=== PATIENT | female | born 1965 | race Caucasian/White ===

== ENCOUNTER 2022-04-29 08:09 | Outpatient (CLI) | payer MEDICARE, OTHER, SELFPAY ==
--- NOTE | 2022-04-29 10:00 | CRLHL7_ITS ---
For Patients: As a result of the Century Cures Act, medical imaging exams and procedure reports are released immediately into your electronic medical record. You may view this report before your referring provider. If you have questions, please contact your health care provider. Indication: Non-healing bilateral buttock pressure wound Technique: AP pelvis Comparison: MRI 05/26/21 Findings: The femoral head component of the hip replacement hardware is subluxed/displaced. Areas of ill-defined decreased marrow density are present about the acetabular cup. Greater trochanter intact. No acute fracture. Constipation. The sacrum is not well evaluated due to overlying stool. Impression: Abnormal right hip replacement hardware with subluxation/dislocation deformity along with concern for chronic osteomyelitis about the acetabular cup. Dictated by Miguel Daniels MD @ 04/29/2022 10:54:23 AM (Electronically Signed)
== END 2022-04-29 08:10 | disposition home or self-care (01) ==
PROVIDERS: Visit Provider Nurse Practitioner Family
DX: L89.310 Pressure ulcer of right buttock, unstageable (principal); L89.320 Pressure ulcer of left buttock, unstageable; L89.153 Pressure ulcer of sacral region, stage 3; Z99.3 Dependence on wheelchair
CPT/HCPCS: 11042; 11043; 72170; 87070; 99213

== ENCOUNTER 2022-05-04 15:30 | Outpatient (CLI) | payer OTHER, MEDICARE, SELFPAY | END 2022-05-04 15:31 | disposition home or self-care (01) | LOC: WOUND 15:32 | PROVIDERS: Visit Provider Nurse Practitioner Family | DX: L89.320 Pressure ulcer of left buttock, unstageable (principal); L89.312 Pressure ulcer of right buttock, stage 2; L89.154 Pressure ulcer of sacral region, stage 4; Z99.3 Dependence on wheelchair | CPT/HCPCS: 11042 ==

== ENCOUNTER 2022-05-18 14:57 | Outpatient (CLI) | payer MEDICARE, SELFPAY | END 2022-05-18 14:58 | disposition home or self-care (01) | LOC: WOUND 14:58 | PROVIDERS: Visit Provider Nurse Practitioner Family | DX: L89.310 Pressure ulcer of right buttock, unstageable (principal); L89.320 Pressure ulcer of left buttock, unstageable; Z99.3 Dependence on wheelchair | CPT/HCPCS: 11042 ==

== ENCOUNTER 2022-05-25 15:37 | Outpatient (CLI) | payer MEDICARE, SELFPAY ==
[2022-05-25 17:23] LABS: Basophils Percent Auto 0.2 % (0.0-3.0); Eosinophils Percent Auto 0.7 % (0.0-7.0); Hematocrit 37.6 % (33.0-51.0); Immature Granulocytes Pct Auto 1.3 %; Lymphocytes Percent Auto 11.6 % (20-44); Mean Corpuscular HGB Conc 32 gm/dL (32-36); Mean Corpuscular Hemoglobin 33 pg (26-34); Mean Corpuscular Volume 104 fL (80-100); Monocytes Percent Auto 8.9 % (0.0-11.0); Neutrophils Percent Auto 77.3 % (42.0-72.0); Platelet Count* 329 K/uL (140-440); Red Blood Count 3.63 m/uL (4.00-5.20); White Blood Count* 14.89 K/uL (4.50-11.00)
[2022-05-25 17:27] LABS: Slide Review Reflex No
[2022-05-25 17:33] LABS: Chloride* 101 mmol/L (96-114); Potassium* 4.5 mmol/L (3.6-5.1); Sodium* 134 mmol/L (135-149)
[2022-05-25 17:35] LABS: Creatinine* 0.2 mg/dL (0.5-1.5); Estimated Glomerular Filt Rate 139 ml/min
[2022-05-25 17:36] LABS: Blood Urea Nitrogen* 33 mg/dL (7-30); Carbon Dioxide* 33 mmol/L (20-32); Glucose* 95 mg/dL (60-115)
[2022-05-25 17:37] LABS: Calcium* 9.3 mg/dL (8.4-10.6)
== END 2022-05-25 15:38 | disposition home or self-care (01) ==
LOC: WOUND 15:37
PROVIDERS: Visit Provider Nurse Practitioner Family
DX: M86.68 Other chronic osteomyelitis, other site (principal); L89.314 Pressure ulcer of right buttock, stage 4; L89.324 Pressure ulcer of left buttock, stage 4; L24.A2 Irritant contact dermatitis due to fecal, urinary or dual incontinence; G82.50 Quadriplegia, unspecified; Z99.3 Dependence on wheelchair
CPT/HCPCS: 11043; 36415; 80048; 85025; 86140

== ENCOUNTER 2022-06-03 12:40 | Outpatient (CLI) | payer MEDICARE, SELFPAY | END 2022-06-03 12:41 | disposition home or self-care (01) | LOC: WOUND 12:40 | PROVIDERS: Visit Provider Nurse Practitioner Family | DX: M86.68 Other chronic osteomyelitis, other site (principal); L89.314 Pressure ulcer of right buttock, stage 4; L89.324 Pressure ulcer of left buttock, stage 4; L24.A2 Irritant contact dermatitis due to fecal, urinary or dual incontinence; Z99.3 Dependence on wheelchair | CPT/HCPCS: 11043; 99212 ==

== ENCOUNTER 2022-06-08 08:51 | Outpatient (CLI) | payer MEDICARE, SELFPAY ==
--- NOTE | 2022-06-08 09:15 | CRLHL7_ITS ---
For Patients: As a result of the Century Cures Act, medical imaging exams and procedure reports are released immediately into your electronic medical record. You may view this report before your referring provider. If you have questions, please contact your health care provider. INDICATION: Tunneling nonhealing pressure wound. Assess for osteomyelitis. COMPARISON: Plain film 29 April 2022 and MRI 26 May 2021. TECHNIQUE: Axial, coronal and sagittal T1 and STIR pre contrast sequences. 15 mL Dotarem gadolinium contrast with T1 fat-sat postcontrast sequences in all 3 planes. FINDINGS: Right hip prosthesis. Fecal impaction. Thickened rectal wall circumferentially. Cachexia appearance of soft tissues. Decubitus ulcers to ischial tuberosities bilaterally slightly more pronounced on the left with surrounding enhancing granulation tissue. Indistinct cortical margins and shallow enhancing low T1 high STIR marrow edema in the ischial tuberosities bilaterally. Abnormal appearance appears confined to the cortex and at most 2-3 mm of the underlying marrow. Thick-walled incompletely visualized urinary bladder. Moderate osteoarthritis left hip. Small effusion. IMPRESSION: 1. Decubitus ulcers to the ischial tuberosities bilaterally which both show mild shallow osteomyelitis. 2. Fecal impaction. Dictated by Abelardo Hollis MD @ 06/09/2022 9:05:17 AM (Electronically Signed)
== END 2022-06-08 08:52 | disposition home or self-care (01) ==
PROVIDERS: PCP Family Medicine; Visit Provider Nurse Practitioner Family
DX: L89.314 Pressure ulcer of right buttock, stage 4 (principal); L89.324 Pressure ulcer of left buttock, stage 4; M86.68 Other chronic osteomyelitis, other site; G82.50 Quadriplegia, unspecified
CPT/HCPCS: 72197; A9575

== ENCOUNTER 2022-07-12 12:48 | Outpatient (CLI) | payer MEDICARE, SELFPAY | END 2022-07-12 12:49 | disposition home or self-care (01) | LOC: WOUND 12:48 | PROVIDERS: PCP Family Medicine; Visit Provider Nurse Practitioner Family | DX: M86.68 Other chronic osteomyelitis, other site (principal); L89.314 Pressure ulcer of right buttock, stage 4; L89.324 Pressure ulcer of left buttock, stage 4; G82.50 Quadriplegia, unspecified; Z99.3 Dependence on wheelchair | CPT/HCPCS: 11042; 11044; 87070; 88304; 97605 ==

== ENCOUNTER 2022-07-14 10:35 | Outpatient (CLI) | payer MEDICARE, SELFPAY | END 2022-07-14 10:36 | disposition home or self-care (01) | LOC: WOUND 10:35 | PROVIDERS: PCP Family Medicine; Visit Provider Surgery | DX: M86.68 Other chronic osteomyelitis, other site (principal); L89.314 Pressure ulcer of right buttock, stage 4; L89.324 Pressure ulcer of left buttock, stage 4; L24.A2 Irritant contact dermatitis due to fecal, urinary or dual incontinence; G82.50 Quadriplegia, unspecified; Z99.3 Dependence on wheelchair | CPT/HCPCS: 11044; 97597; 99212 ==

== ENCOUNTER 2022-07-19 12:42 | Outpatient (CLI) | payer MEDICARE, SELFPAY | END 2022-07-19 12:43 | disposition home or self-care (01) | LOC: WOUND 12:42 | PROVIDERS: PCP Family Medicine; Visit Provider Nurse Practitioner Family | DX: M86.68 Other chronic osteomyelitis, other site (principal); L89.314 Pressure ulcer of right buttock, stage 4; L89.324 Pressure ulcer of left buttock, stage 4; G82.50 Quadriplegia, unspecified; Z99.3 Dependence on wheelchair | CPT/HCPCS: 11042; 11044; 87070; 97605 ==

== ENCOUNTER 2022-07-21 13:54 | Outpatient (CLI) | payer MEDICARE, SELFPAY | END 2022-07-21 13:55 | disposition home or self-care (01) | LOC: WOUND 13:54 | PROVIDERS: PCP Family Medicine; Visit Provider Nurse Practitioner Family | DX: M86.68 Other chronic osteomyelitis, other site (principal); L89.324 Pressure ulcer of left buttock, stage 4; G82.50 Quadriplegia, unspecified; Z99.3 Dependence on wheelchair | CPT/HCPCS: 97605 ==

== ENCOUNTER 2022-07-26 12:52 | Outpatient (CLI) | payer MEDICARE, SELFPAY | END 2022-07-26 12:53 | disposition home or self-care (01) | LOC: WOUND 12:52 | PROVIDERS: PCP Family Medicine; Visit Provider Family Medicine | DX: M86.68 Other chronic osteomyelitis, other site (principal); L89.314 Pressure ulcer of right buttock, stage 4; L89.324 Pressure ulcer of left buttock, stage 4; G82.50 Quadriplegia, unspecified; Z99.3 Dependence on wheelchair | CPT/HCPCS: 11043; 97605 ==

== ENCOUNTER 2022-08-02 12:52 | Outpatient (CLI) | payer MEDICARE, SELFPAY | END 2022-08-02 12:53 | disposition home or self-care (01) | LOC: WOUND 12:52 | PROVIDERS: PCP Family Medicine; Visit Provider Family Medicine | DX: L89.314 Pressure ulcer of right buttock, stage 4 (principal); L89.324 Pressure ulcer of left buttock, stage 4; M86.68 Other chronic osteomyelitis, other site; L24.A2 Irritant contact dermatitis due to fecal, urinary or dual incontinence; G82.50 Quadriplegia, unspecified | CPT/HCPCS: 11042; 97605 ==

== ENCOUNTER 2022-08-16 12:47 | Outpatient (CLI) | payer MEDICARE, SELFPAY | END 2022-08-16 12:48 | disposition home or self-care (01) | LOC: WOUND 12:47 | PROVIDERS: PCP Family Medicine; Visit Provider Nurse Practitioner Family | DX: M86.68 Other chronic osteomyelitis, other site (principal); L89.314 Pressure ulcer of right buttock, stage 4; L89.324 Pressure ulcer of left buttock, stage 4; G82.50 Quadriplegia, unspecified; Z99.3 Dependence on wheelchair | CPT/HCPCS: 11042; 97605 ==

== ENCOUNTER 2022-08-23 13:05 | Outpatient (CLI) | payer MEDICARE, SELFPAY | END 2022-08-23 13:06 | disposition home or self-care (01) | LOC: WOUND 13:05 | PROVIDERS: PCP Family Medicine; Visit Provider Nurse Practitioner Family | DX: M86.68 Other chronic osteomyelitis, other site (principal); L89.314 Pressure ulcer of right buttock, stage 4; L89.324 Pressure ulcer of left buttock, stage 4; L24.A2 Irritant contact dermatitis due to fecal, urinary or dual incontinence; Z99.3 Dependence on wheelchair | CPT/HCPCS: 11042; 97605 ==

== ENCOUNTER 2022-08-30 12:56 | Outpatient (CLI) | payer MEDICARE, SELFPAY | END 2022-08-30 12:57 | disposition home or self-care (01) | LOC: WOUND 12:56 | PROVIDERS: PCP Family Medicine; Visit Provider Nurse Practitioner Family | DX: M86.68 Other chronic osteomyelitis, other site (principal); L89.314 Pressure ulcer of right buttock, stage 4; L89.324 Pressure ulcer of left buttock, stage 4; G82.50 Quadriplegia, unspecified; Z99.3 Dependence on wheelchair | CPT/HCPCS: 11042; 97605 ==

== ENCOUNTER 2022-09-06 12:59 | Outpatient (CLI) | payer MEDICARE, SELFPAY | END 2022-09-06 13:00 | disposition home or self-care (01) | LOC: WOUND 12:59 | PROVIDERS: PCP Family Medicine; Visit Provider Nurse Practitioner Family | DX: M86.68 Other chronic osteomyelitis, other site (principal); L89.314 Pressure ulcer of right buttock, stage 4; L89.324 Pressure ulcer of left buttock, stage 4; G82.50 Quadriplegia, unspecified; Z99.3 Dependence on wheelchair | CPT/HCPCS: 11042; 97606 ==

== ENCOUNTER 2022-09-13 13:01 | Outpatient (CLI) | payer MEDICARE, SELFPAY | END 2022-09-13 13:02 | disposition home or self-care (01) | LOC: WOUND 13:01 | PROVIDERS: PCP Family Medicine; Visit Provider Nurse Practitioner Family | DX: M86.68 Other chronic osteomyelitis, other site (principal); L89.314 Pressure ulcer of right buttock, stage 4; L89.324 Pressure ulcer of left buttock, stage 4; G82.50 Quadriplegia, unspecified; Z99.3 Dependence on wheelchair | CPT/HCPCS: 11042; 97605 ==

== ENCOUNTER 2022-09-20 13:04 | Outpatient (CLI) | payer MEDICARE, SELFPAY | END 2022-09-20 13:05 | disposition home or self-care (01) | LOC: WOUND 13:04 | PROVIDERS: PCP Family Medicine; Visit Provider Nurse Practitioner Family | DX: M86.68 Other chronic osteomyelitis, other site (principal); L89.314 Pressure ulcer of right buttock, stage 4; L89.324 Pressure ulcer of left buttock, stage 4; G82.50 Quadriplegia, unspecified; Z99.3 Dependence on wheelchair | CPT/HCPCS: 11042; 97605 ==

== ENCOUNTER 2022-09-27 13:09 | Outpatient (CLI) | payer MEDICARE, SELFPAY | END 2022-09-27 13:10 | disposition home or self-care (01) | LOC: WOUND 13:09 | PROVIDERS: PCP Family Medicine; Visit Provider Nurse Practitioner Family | DX: M86.68 Other chronic osteomyelitis, other site (principal); L89.314 Pressure ulcer of right buttock, stage 4; L89.324 Pressure ulcer of left buttock, stage 4; G82.50 Quadriplegia, unspecified; Z99.3 Dependence on wheelchair | CPT/HCPCS: 11042; 97605 ==

== ENCOUNTER 2022-10-04 13:42 | Outpatient (CLI) | payer MEDICARE, SELFPAY | END 2022-10-04 13:43 | disposition home or self-care (01) | LOC: WOUND 13:42 | PROVIDERS: PCP Family Medicine; Visit Provider Nurse Practitioner Family | DX: M86.68 Other chronic osteomyelitis, other site (principal); L89.314 Pressure ulcer of right buttock, stage 4; L89.324 Pressure ulcer of left buttock, stage 4; G82.50 Quadriplegia, unspecified; Z99.3 Dependence on wheelchair | CPT/HCPCS: 11042; 97605 ==

== ENCOUNTER 2022-10-18 13:11 | Outpatient (CLI) | payer MEDICARE, SELFPAY | END 2022-10-18 13:12 | disposition home or self-care (01) | LOC: WOUND 13:11 | PROVIDERS: PCP Family Medicine; Visit Provider Nurse Practitioner Family | DX: M86.68 Other chronic osteomyelitis, other site (principal); L89.314 Pressure ulcer of right buttock, stage 4; L89.324 Pressure ulcer of left buttock, stage 4; G82.50 Quadriplegia, unspecified; Z99.3 Dependence on wheelchair | CPT/HCPCS: 11042; 99212 ==

== ENCOUNTER 2022-11-01 12:55 | Outpatient (CLI) | payer MEDICARE, SELFPAY | END 2022-11-01 12:56 | disposition home or self-care (01) | LOC: WOUND 12:55 | PROVIDERS: PCP Family Medicine; Visit Provider Nurse Practitioner Family | DX: M86.68 Other chronic osteomyelitis, other site (principal); L89.314 Pressure ulcer of right buttock, stage 4; L89.324 Pressure ulcer of left buttock, stage 4; G82.50 Quadriplegia, unspecified; Z99.3 Dependence on wheelchair | CPT/HCPCS: 97597; 97605 ==

== ENCOUNTER 2022-11-15 13:09 | Outpatient (CLI) | payer MEDICARE, SELFPAY | END 2022-11-15 13:10 | disposition home or self-care (01) | LOC: WOUND 13:09 | PROVIDERS: PCP Family Medicine; Visit Provider Nurse Practitioner Family | DX: M86.68 Other chronic osteomyelitis, other site (principal); L89.314 Pressure ulcer of right buttock, stage 4; L89.324 Pressure ulcer of left buttock, stage 4; G82.50 Quadriplegia, unspecified; Z99.3 Dependence on wheelchair | CPT/HCPCS: 11042; 97602; 97605 ==

== ENCOUNTER 2022-11-22 12:59 | Outpatient (CLI) | payer MEDICARE, SELFPAY | END 2022-11-22 13:00 | disposition home or self-care (01) | LOC: WOUND 12:59 | PROVIDERS: PCP Family Medicine; Visit Provider Nurse Practitioner Family | DX: M86.68 Other chronic osteomyelitis, other site (principal); L89.314 Pressure ulcer of right buttock, stage 4; L89.324 Pressure ulcer of left buttock, stage 4; G82.50 Quadriplegia, unspecified; Z99.3 Dependence on wheelchair | CPT/HCPCS: 97597; 97605 ==

== ENCOUNTER 2022-11-29 12:59 | Outpatient (CLI) | payer MEDICARE, SELFPAY | END 2022-11-29 13:00 | disposition home or self-care (01) | LOC: WOUND 12:59 | PROVIDERS: PCP Family Medicine; Visit Provider Nurse Practitioner Family | DX: M86.68 Other chronic osteomyelitis, other site (principal); L89.314 Pressure ulcer of right buttock, stage 4; L89.324 Pressure ulcer of left buttock, stage 4; G82.50 Quadriplegia, unspecified; Z99.3 Dependence on wheelchair | CPT/HCPCS: 11042; 97605 ==

== ENCOUNTER 2022-12-06 12:53 | Outpatient (CLI) | payer MEDICARE, SELFPAY | END 2022-12-06 12:54 | disposition home or self-care (01) | LOC: WOUND 12:53 | PROVIDERS: PCP Family Medicine; Visit Provider Nurse Practitioner Family | DX: M86.68 Other chronic osteomyelitis, other site (principal); L89.314 Pressure ulcer of right buttock, stage 4; L89.324 Pressure ulcer of left buttock, stage 4; G82.50 Quadriplegia, unspecified; Z99.3 Dependence on wheelchair | CPT/HCPCS: 11042; 97605 ==

== ENCOUNTER 2022-12-06 17:20 | Outpatient (CLI) | payer MEDICARE, SELFPAY | END 2022-12-06 17:21 | disposition home or self-care (01) | LOC: AMB 12-08 12:15 | PROVIDERS: PCP Family Medicine; Visit Provider Family Medicine | DX: I95.9 Hypotension, unspecified (principal); R06.02 Shortness of breath; H53.8 Other visual disturbances | CPT/HCPCS: A0425; A0427 ==

== ENCOUNTER 2022-12-06 17:48 | Emergency (ER) | payer MEDICARE, SELFPAY ==
[2022-12-06 17:54] VITALS: BP 91/70; PULSE 75; RESP 16; TEMP 36.4; O2SAT 100
[2022-12-06 18:14] VITALS: O2SAT 100
--- NOTE | 2022-12-06 18:15 | ED_ITS ---
HPI - General Adult General Chief complaint: Unspecified Complaint, Adult Stated complaint: low BP Time Seen by Provider: 12/06/22 18:04 Source: patient Mode of arrival: EMS Limitations: no limitations History of Present Illness HPI narrative: 57-year-old female presenting today with hypotension. Patient is a paraplegic patient currently undergoing treatment for a decubitus ulcer. She did clinic appointment today that went well. Shortly afterwards she went grocery shopping when she got back in the car she felt an episode where she became very lightheaded her vision became foggy and she felt very short of breath suddenly. It lasted approximately 10 minutes. She presented to urgent care for evaluation and found her systolic blood pressure was 73. When the ambulance arrived her blood pressure was 80 systolic. She was sent to ER for further management. She states that she feels better now. She is no longer dizzy, lightheaded or short of breath. She tells me that her systolic blood pressures generally in the upper 90s to low 100s. Patient denies any recent illness, no changes in her appetite, no diarrhea. No vomiting. She tells me that her decubitus ulcer is healing appropriately and that no signs of infection have been found recently. She has a wound VAC in place. Related Data Home Medications Medication Instructions Recorded Confirmed baclofen 10 mg tablet 20 mg PO 3XD 12/06/22 12/06/22 gabapentin 300 mg capsule 900 mg PO QID 12/06/22 12/06/22 meloxicam 15 mg tablet 15 mg PO DAILY 12/06/22 12/06/22 mirabegron 50 mg tablet,extended mg PO 12/06/22 release 24 hr (Myrbetriq) nitrofurantoin macrocrystal 50 mg 50 mg PO QPM 12/06/22 12/06/22 capsule tramadol 50 mg tablet 50 mg PO Q6H PRN 12/06/22 12/06/22 Previous Rx's Medication Instructions Recorded cephalexin 500 mg capsule 500 mg PO TID 7 days #21 caps 12/06/22 Allergies Allergy/AdvReac Type Severity Reaction Status Date / Time nka Allergy Unknown Uncoded 06/22/22 12:32 Review of Systems Status of ROS: Reports: 10 or more systems reviewed and unremarkable except as noted in History and below PFSH PFSH Social History Smoking Status: Current every day smoker How often do you have a drink containing alcohol: never How often do you have six or more drinks on one occasion: Never AUDIT-C Alcohol total score: 0 Non-prescribed substance use: denies use Exam Narrative: Exam Narrative: Thin patient in no acute distress. Alert and oriented x3. Answers questions appropriately. Mood and affect are appropriate. Thoughts are goal oriented and rational. No tangential or magical thinking noted. Patient speaks in full sentences without needing to catch her breath. HEENT: Normocephalic atraumatic. Pupils are equally round reactive to light. Extraocular muscles are intact. Conjunctivae are moist without any icterus noted. Moist mucous membranes. Neck is soft. Cardiovascular: Heart is regular rate and rhythm S1 and S2 are present without any murmurs. Lungs: Clear to auscultation bilaterally no wheezes rhonchi or rales are appreciated. Patient takes deep breaths without any discomfort. Abdomen: Soft and nontender, mildly distended with normal bowel sounds. No guarding or rebound. Skin: Well perfused without any obvious rashes. I did not inspect her decubitus ulcer as this was just inspected and dressings were changed today. Const: Vital Signs, click to edit/add: Vital Signs - 24 hr 12/06/22 17:54 12/06/22 18:14 12/06/22 18:45 Temperature 97.5 F L Pulse Rate [Pulse Oximeter] 75 67 Respiratory Rate 16 Blood Pressure [[facility]] 91/70 105/78 Pulse Oximetry 100 100 100 Oxygen Delivery Me thod Room Air Room Air Course Course ED Course: Patient received 500 mL normal saline on the ambulance another 500 when she arrived. Her blood pressure did go up to 105 systolic. EKG, read by me, shows normal sinus rhythm with a pulse of 69. Lab work showed a slightly elevated WBC and a slightly elevated CRP. Her urine was grossly positive for signs of infection. Normal lactate. Patient remained asymptomatic while she was here. One dose of Rocephin given in the ED today. Vital Signs Vital signs: Initial Vital Signs Temperature 97.5 F L 12/06/22 17:54 Temperature Source Temporal Artery Scan 12/06/22 17:54 Pulse Rate 75 12/06/22 17:54 Respiratory Rate 16 12/06/22 17:54 Blood Pressure 91/70 12/06/22 17:54 Blood Pressure Mean 77 12/06/22 17:54 Blood Pressure Position Supine 12/06/22 17:54 Pulse Oximetry 100 12/06/22 17:54 Oxygen Delivery Method Room Air 12/06/22 17:54 Vital Signs Temperature 97.5 F L 12/06/22 17:54 Pulse Rate 75 12/06/22 17:54 Respiratory Rate 16 12/06/22 17:54 Blood Pressure 91/70 12/06/22 17:54 Pulse Oximetry 100 12/06/22 17:54 Oxygen Delivery Method Room Air 12/06/22 17:54 Temperature 97.5 F L 12/06/22 17:54 Pulse Rate 67 12/06/22 18:45 Respiratory Rate 16 12/06/22 17:54 Blood Pressure 105/78 12/06/22 18:45 Pulse Oximetry 100 12/06/22 18:45 Oxygen Delivery Method Room Air 12/06/22 18:45 Medical Decision Making MDM Narrative Medical decision making narrative: 57-year-old female with UTI presenting with hypotension that responded well to 1 L of normal saline. Rocephin given in the ED today. Given her brisk response t o fluid resuscitation and the fact that she was asymptomatic by the time she arrived in our ER, I do not think admission is necessary at this time. However close follow-up is recommended. Patient is on low-dose Macrobid daily for prevention. Will treat UTI with Keflex 500 t.i.d.. She will resume Macrobid after Keflex is done. Low threshold for returning to the ER: This would include fevers, chills, vomiting. Lab Data Lab results reviewed: Yes I reviewed the patient's lab results Labs: Lab Results 12/06/22 12/06/22 Range/Units 18:13 18:35 WBC 11.35 H (4.50-11.00) K/uL RBC 4.21 (4.00-5.20) m/uL Hgb 13.5 (12.0-16.0) gm/dL Hct 45.5 (33.0-51.0) % MCV 108 H (80-100) fL MCH 32 (26-34) pg MCHC 30 L (32-36) gm/dL RDW Coeff of Edmundo 14.0 (11.5-15.5) % Plt Count 239 (140-440) K/uL Neut % (Auto) 73.4 H (42.0-72.0) % Lymph % (Auto) 14.4 L (20-44) % Logan % (Auto) 9.6 (0.0-11.0) % Eos % (Auto) 2.2 (0.0-7.0) % Baso % (Auto) 0.2 (0.0-3.0) % Neut # (Auto) 8.30 H (1.7-7.0) K/uL Lymph # (Auto) 1.60 (0.90-2.90) K/uL Logan # (Auto) 1.10 H (0.00-0.90) K/UL Eos # (Auto) 0.20 (0.00-0.50) K/uL Baso # (Auto) 0.00 (0.00-0.30) K/uL Abs Immat Gran (auto) 0.00 (0.00-0.30) K/uL Imm/Tot Granulo (auto) 0.2 % Sodium 138 (135-149) mmol/L Potassium 4.3 (3.6-5.1) mmol/L Chloride 97 (96-114) mmol/L Carbon Dioxide 32 (20-32) mmol/L Anion Gap 9 (7-15) mEq/L BUN 21 (7-30) mg/dL Creatinine 0.2 L (0.5-1.5) mg/dL Estimated GFR 138 ml/min Glucose 148 H (60-115) mg/dL Lactate 1.9 (0.5-1.9) mmol/L Calcium 8.9 (8.4-10.6) mg/dL Troponin I < 0.01 L (0.01-0.04) ng/mL C-Reactive Protein 3.1 H (0.5-1.0) mg/dL Urine Color Yellow (Yellow) Urine Appearance Clear (Clear) Urine pH 6.0 (5.0-8.5) Ur Specific Vernon 1.020 (1.000-1.030) Urine Protein 2+ A (Negative) Urine Glucose (UA) Negative (Negative) Urine Ketones Negative (Negative) Urine Blood 2+ A (Negative) Urine Nitrite Positive A (Negative) Urine Bilirubin Negative (Negative) Urine Urobilinogen 0.2 (0.2-1.0) Ur Leukocyte Esterase 3+ A (Negative) Urine RBC 10-25 A (0-2) Urine WBC 25-50 A (0-5) Ur Squamous Epith Cells Few (None-Few) Urine Bacteria Many A (None) ECG Data Attestation: I personally reviewed and interpreted this ECG as follows: Discharge Plan Discharge Clinical Impression: UTI (urinary tract infection) Patient Disposition: Home, Self-Care Condition: Stable Additional Instructions: It appears that you have urinary bladder infection that likely caused your symptoms today. You also presented with very low blood pressure that responded well to fluids. We will treat you with an antibiotic for the next five days. You can take your 1st dose in the morning. You should stop your nitrofurantoin while you take this new antibiotic, you can resume after your new antibiotic is done. I recommend you follow-up with your primary care provider in the next 48- 72 hours. Make sure to stay well hydrated. Return to the ER if you develop fevers, chills, dizziness or lethargy. Prescriptions: New cephalexin 500 mg capsule 500 mg PO TID 7 Days Qty: 21 0RF No Action nitrofurantoin macrocrystal 50 mg capsule 50 mg PO QPM meloxicam 15 mg tablet 15 mg PO DAILY tramadol 50 mg tablet 50 mg PO Q6H PRN baclofen 10 mg tablet 20 mg PO 3XD gabapentin 300 mg capsule 900 mg PO QID Myrbetriq 50 mg tablet extended release 24 hr PO Follow Up/Referrals: Jazmine Baxter MD [Primary Care Provider] - Stand Alone Forms: [employer] Info Instructions
[2022-12-06 18:39] LABS: Appearance Urine Clear (Clear); Bilirubin Urine Negative (Negative); Blood Urine 2+ (Negative); Color Urine Yellow (Yellow); Glucose Urine Negative (Negative); Ketones Urine Negative (Negative); Leukocyte Esterase Urine 3+ (Negative); Nitrite Urine Positive (Negative); Protein Urine 2+ (Negative); Urobilinogen Urine 0.2 (0.2-1.0)
[2022-12-06] MEDS: 0.9 % SODIUM CHLORIDE 500 ML 500 ML IV (18:42)
[2022-12-06 18:45] VITALS: BP 105/78; PULSE 67; O2SAT 100
[2022-12-06 18:46] LABS: Basophils Percent Auto 0.2 % (0.0-3.0); Eosinophils Percent Auto 2.2 % (0.0-7.0); Hematocrit 45.5 % (33.0-51.0); Hemoglobin* 13.5 gm/dL (12.0-16.0); Immature Granulocytes Pct Auto 0.2 %; Lymphocytes Percent Auto 14.4 % (20-44); Mean Corpuscular HGB Conc 30 gm/dL (32-36); Mean Corpuscular Hemoglobin 32 pg (26-34); Mean Corpuscular Volume 108 fL (80-100); Monocytes Percent Auto 9.6 % (0.0-11.0); Neutrophils Percent Auto 73.4 % (42.0-72.0); Platelet Count* 239 K/uL (140-440); Red Blood Count 4.21 m/uL (4.00-5.20); White Blood Count* 11.35 K/uL (4.50-11.00)
[2022-12-06 18:47] LABS: Slide Review Reflex No
[2022-12-06 18:49] LABS: Lactate* 1.9 mmol/L (0.5-1.9)
[2022-12-06 18:57] LABS: Chloride* 97 mmol/L (96-114); Sodium* 138 mmol/L (135-149)
[2022-12-06 18:58] LABS: Potassium* 4.3 mmol/L (3.6-5.1)
[2022-12-06 19:00] LABS: Creatinine* 0.2 mg/dL (0.5-1.5); Estimated Glomerular Filt Rate 138 ml/min
[2022-12-06 19:01] LABS: Anion Gap 9 mEq/L (7-15); Blood Urea Nitrogen* 21 mg/dL (7-30); Calcium* 8.9 mg/dL (8.4-10.6); Carbon Dioxide* 32 mmol/L (20-32); Glucose* 148 mg/dL (60-115)
[2022-12-06 19:04] LABS: C Reactive Protein* 3.1 mg/dL (0.5-1.0)
[2022-12-06 19:16] LABS: Troponin I* < 0.01 ng/mL (0.01-0.04)
[2022-12-06 19:16] LABS: Bacteria Urine Many; Squamous Epithelial Cell Urine Few (None-Few); WBC Urine 25-50 (0-5)
[2022-12-06] MEDS: cefTRIAXone 1 GM in 0.9 % SODIUM CHLORIDE Mini-bag 100 ML IVPB (20:44)
[2022-12-06 21:06] VITALS: BP 109/62; PULSE 74; RESP 16; O2SAT 94
== END 2022-12-06 21:25 | disposition home or self-care (01) ==
PROVIDERS: Emergency Provider Family Medicine; PCP Family Medicine
DX: N39.0 Urinary tract infection, site not specified (principal)
CPT/HCPCS: 36415; 80048; 81001; 83605; 84484; 85025; 86140; 87086; 87186; 93005; 94761; 96365; 96372; 99284; J0696; J7120

== ENCOUNTER 2022-12-13 12:49 | Outpatient (CLI) | payer MEDICARE, SELFPAY | END 2022-12-13 12:50 | disposition home or self-care (01) | LOC: WOUND 12:49 | PROVIDERS: PCP Family Medicine; Visit Provider Nurse Practitioner Family | DX: M86.68 Other chronic osteomyelitis, other site (principal); L89.314 Pressure ulcer of right buttock, stage 4; L89.324 Pressure ulcer of left buttock, stage 4; G82.50 Quadriplegia, unspecified; N39.0 Urinary tract infection, site not specified; Z99.3 Dependence on wheelchair | CPT/HCPCS: 11042; 51702; 97597; 97605 ==

== ENCOUNTER 2022-12-20 12:54 | Outpatient (CLI) | payer MEDICARE, SELFPAY | END 2022-12-20 12:55 | disposition home or self-care (01) | LOC: WOUND 12:54 | PROVIDERS: PCP Family Medicine; Visit Provider Family Medicine | DX: M86.68 Other chronic osteomyelitis, other site (principal); L89.314 Pressure ulcer of right buttock, stage 4; L89.324 Pressure ulcer of left buttock, stage 4; G82.50 Quadriplegia, unspecified; Z99.3 Dependence on wheelchair | CPT/HCPCS: 11042; 97605 ==

== ENCOUNTER 2022-12-27 13:08 | Outpatient (CLI) | payer MEDICARE, SELFPAY | END 2022-12-27 13:09 | disposition home or self-care (01) | LOC: WOUND 13:08 | PROVIDERS: PCP Family Medicine; Visit Provider Nurse Practitioner Family | DX: M86.68 Other chronic osteomyelitis, other site (principal); L89.314 Pressure ulcer of right buttock, stage 4; L89.324 Pressure ulcer of left buttock, stage 4; G82.50 Quadriplegia, unspecified; Z99.3 Dependence on wheelchair | CPT/HCPCS: 97597; 97605 ==

== ENCOUNTER 2023-01-03 13:02 | Outpatient (CLI) | payer MEDICARE, SELFPAY | END 2023-01-03 13:03 | disposition home or self-care (01) | LOC: WOUND 13:02 | PROVIDERS: PCP Family Medicine; Visit Provider Nurse Practitioner Family | DX: M86.68 Other chronic osteomyelitis, other site (principal); L89.314 Pressure ulcer of right buttock, stage 4; L89.324 Pressure ulcer of left buttock, stage 4; G82.50 Quadriplegia, unspecified; Z99.3 Dependence on wheelchair | CPT/HCPCS: 11042; 97605 ==

== ENCOUNTER 2023-01-10 13:00 | Outpatient (CLI) | payer MEDICARE, SELFPAY | END 2023-01-10 13:01 | disposition home or self-care (01) | LOC: WOUND 13:00 | PROVIDERS: PCP Family Medicine; Visit Provider Nurse Practitioner Family | DX: M86.68 Other chronic osteomyelitis, other site (principal); L89.324 Pressure ulcer of left buttock, stage 4; L89.314 Pressure ulcer of right buttock, stage 4; G82.50 Quadriplegia, unspecified; Z99.3 Dependence on wheelchair | CPT/HCPCS: 11042; 97605 ==

== ENCOUNTER 2023-01-14 11:31 | Emergency (ER) | payer MEDICARE, SELFPAY ==
[2023-01-14] VITALS (54 sets, daily range): BP systolic 64–155; BP diastolic 30–83; PULSE 58–98; RESP 16; TEMP 35.5; O2SAT 85–100; BMI 18.9
--- NOTE | 2023-01-14 11:50 | CRLHL7_ITS ---
For Patients: As a result of the Century Cures Act, medical imaging exams and procedure reports are released immediately into your electronic medical record. You may view this report before your referring provider. If you have questions, please contact your health care provider. INDICATION: HYPOTENSION TECHNIQUE: Chest 1 views. COMPARISON: March 30, 2018 FINDINGS: Cardiovascular and mediastinum: Heart size and vasculature are normal in caliber and appearance. Lungs and pleural spaces: Lungs are clear. No sign of infiltrate. No sign of pleural effusion. No pneumothorax. Bones and soft tissues: Postoperative changes of the cervical spine incompletely visualized. IMPRESSION: No evidence of acute cardiopulmonary process. Dictated by Anton Lazo MD @ 01/14/2023 1:36:48 PM (Electronically Signed)
--- NOTE | 2023-01-14 11:52 | ED.GENADULT ---
HPI - General Adult General Date Seen: 01/14/23 Chief complaint: Unspecified Complaint, Adult Stated complaint: in/out of consciousness Time Seen by Provider: 01/14/23 11:42 Source: patient and RN notes reviewed Mode of arrival: wheelchair Limitations: no limitations History of Present Illness HPI narrative: Patient is a 57-year-old woman who is paraplegic, comes in by private car for evaluation of feeling ?crappy since yesterday evening. She says she has felt fatigued, maybe a little bit nauseated. Hematuria which is new. She does not have much sensation in her abdomen. She has not noted any chest pain or trouble breathing, denies cough. Denies sore throat or headache. No diarrhea. No unusual rashes. Related Data Home Medications Medication Instructions Recorded Confirmed baclofen 10 mg tablet 20 mg PO 3XD 12/06/22 01/14/23 gabapentin 300 mg capsule 900 mg PO QID 12/06/22 01/14/23 meloxicam 15 mg tablet 15 mg PO DAILY 12/06/22 01/14/23 mirabegron 50 mg tablet,extended mg PO 12/06/22 release 24 hr (Myrbetriq) nitrofurantoin macrocrystal 50 mg 50 mg PO QPM 12/06/22 01/14/23 capsule tramadol 50 mg tablet 50 mg PO Q6H PRN 12/06/22 01/14/23 Allergies Allergy/AdvReac Type Severity Reaction Status Date / Time nka Allergy Unknown Uncoded 06/22/22 12:32 Review of Systems Status of ROS: Reports: 10 or more systems reviewed and unremarkable except as noted in History and below PFSH PFS Social History Smoking Status: Current every day smoker How often do you have a drink containing alcohol: never How often do you have six or more drinks on one occasion: Never AUDIT-C Alcohol total score: 0 Non-prescribed substance use: denies use Exam Narrative: Exam Narrative: Vital signs as noted above. In general, an alert, nontoxic woman, appears fatigued. Head: Normocephalic, atraumatic. Eyes: Pupils are equal reactive. Extraocular movements are full. Conjunctivae are normal. ENT: Mucous membranes are somewhat dry. Neck: Supple without lymphadenopathy. Heart: Regular rate and rhythm. No murmur or rub. Lungs: Clear anteriorly. No increased work of breathing, crackles or wheezes. Abdomen: Soft and nondistended. Nontender but again she says she does not have a lot of sensation in her abdomen. Extremities: Well perfused. No edema. No calf tenderness. Pulses intact. Neurologic: Patient is alert and oriented to person and place. Speech is fluent. Face is symmetric. Paraplegic. Affect: Normal. Skin: Warm and dry. Well perfused. Const: Vital Signs, click to edit/add: Vital Signs - 24 hr 01/14/23 11:35 01/14/23 11:42 01/14/23 11:43 Temperature 96 F L Pulse Rate 86 85 Respiratory Rate 16 Blood Pressure 76/52 L Blood Pressure [Ri ght Upper Arm] 76/52 L Pulse Oximetry 90 90 90 Oxygen Delivery Me od Room Air 01/14/23 11:45 01/14/23 12:00 01/14/23 12:02 Temperature Pulse Rate 92 98 94 Respiratory Rate Blood Pressure 64/45 L Blood Pressure [Ri ght Upper Arm] Pulse Oximetry 89 85 L 89 Oxygen Delivery Me thod 01/14/23 12:06 01/14/23 12:15 01/14/23 12:22 Temperature Pulse Rate 82 79 80 Respiratory Rate Blood Pressure 83/54 L 86/47 L Blood Pressure [Ri ght Upper Arm] Pulse Oximetry 92 97 100 Oxygen Delivery Me thod 01/14/23 12:30 01/14/23 12:42 01/14/23 12:45 Temperature Pulse Rate 80 79 77 Respiratory Rate Blood Pressure 89/34 L Blood Pressure [Ri ght Upper Arm] Pulse Oximetry 98 98 98 Oxygen Delivery Me thod 01/14/23 13:00 01/14/23 13:02 01/14/23 13:15 Temperature Pulse Rate 76 73 78 Respiratory Rate Blood Pressure 82/30 L Blood Pressure [Ri ght Upper Arm] Pulse Oximetry 95 92 96 Oxygen Delivery Me thod 01/14/23 13:18 01/14/23 13:22 01/14/23 13:30 Temperature Pulse Rate 76 73 73 Respiratory Rate Blood Pressure 77/44 L 81/35 L Blood Pressure [Ri ght Upper Arm] Pulse Oximetry 97 96 95 Oxygen Delivery Me thod 01/14/23 13:38 01/14/23 13:45 12/08/23 13:47 Temperature Pulse Rate 74 73 72 Respiratory Rate Blood Pressure 78/41 L 76/42 L Blood Pressure [Ri ght Upper Arm] Pulse Oximetry 93 94 93 Oxygen Delivery Me thod 01/14/23 14:05 01/14/23 14:15 01/14/23 14:17 Temperature Pulse Rate 79 71 58 L Respiratory Rate Blood Pressure 155/83 H Blood Pressure [Ri ght Upper Arm] Pulse Oximetry 95 96 98 Oxygen Delivery Me thod 01/14/23 14:19 01/14/23 14:21 01/14/23 14:30 Temperature Pulse Rate 60 74 72 Respiratory Rate Blood Pressure 152/81 H 152/72 H Blood Pressure [Ri ght Upper Arm] Pulse Oximetry 98 98 96 Oxygen Delivery Me thod 01/14/23 14:33 01/14/23 14:45 01/14/23 14:47 Temperature Pulse Rate 74 70 76 Respiratory Rate Blood Pressure 126/50 L 114/57 L Blood Pressure [Ri ght Upper Arm] Pulse Oximetry 94 95 96 Oxygen Delivery Me thod 01/14/23 14:48 01/14/23 15:00 01/14/23 15:02 Temperature Pulse Rate 73 75 78 Respiratory Rate Blood Pressure 117/59 L Blood Pressure [Ri ght Upper Arm] Pulse Oximetry 97 98 99 Oxygen Delivery Me thod 01/14/23 15:15 01/14/23 15:17 01/14/23 15:18 Temperature Pulse Rate 75 78 73 Respiratory Rate Blood Pressure 109/57 L Blood Pressure [Ri ght Upper Arm] Pulse Oximetry 98 98 98 Oxygen Delivery Me thod 01/14/23 15:30 01/14/23 15:32 01/14/23 15:33 Temperature Pulse Rate 76 79 72 Respiratory Rate Blood Pressure 113/61 Blood Pressure [Ri ght Upper Arm] Pulse Oximetry 98 97 97 Oxygen Delivery Me thod 01/14/23 15:45 01/14/23 15:47 01/14/23 16:00 Temperature Pulse Rate 74 80 72 Respiratory Rate Blood Pressure 111/51 L Blood Pressure [Ri ght Upper Arm] Pulse Oximetry 98 98 98 Oxygen Delivery Me thod 01/14/23 16:02 01/14/23 16:15 01/14/23 16:17 Temperature Pulse Rate 76 71 76 Respiratory Rate Blood Pressure 106/64 106/54 L Blood Pressure [Ri ght Upper Arm] Pulse Oximetry 97 98 98 Oxygen Delivery Me thod 01/14/23 16:30 01/14/23 16:32 Temperature Pulse Rate 72 74 Respiratory Rate Blood Pressure 111/59 L Blood Pressure [Ri ght Upper Arm] Pulse Oximetry 98 98 Oxygen Delivery Me thod Documenting provider has reviewed patient's vital signs: yes Course Course ED Course: Patient is maintained on the monitor, will establish 2 IVs, start with 1 L of normal saline, blood cultures, routine labs, chest x-ray, UA. Urine is very grossly bloody. Diagnostic considerations think infection/sepsis, anemia, metabolic derangement, cardiogenic shock among others. [place] [address]. Hemoglobin is 13, platelets normal. Left shift with 89% neutrophils. Venous gas shows no evidence of acidosis, pCO2 is mildly elevated at 53, bicarb is 30. Metabolic panel is unremarkable, BUN 28 creatinine 0.3. Lactate was normal at 1.4. Electrolytes normal. LFTs unremarkable, CRP elevated at 5. TSH normal. Urinalysis showed positive nitrites, 50-100 white blood cells and greater than 100 red blood cells. Culture pending. Blood cultures were ordered as well. She had a 2 L of normal saline, she had Zosyn and vancomycin following blood cultures and with the return of her markedly elevated white blood cell count. She had a chest x-ray which by my review showed no evidence of infiltrate or other acute findings. Final radiology read is negative. Diagnosis at this time appears to be UTI with sepsis. She did have brief response to fluids with a blood pressure in the 90s but she drifted back down to the 70s and Levophed was started. As a result, will need to transfer her to a facility with ICU. I did elect to do a CT scan to rule out kidney stone, by my review this showed stones in the kidneys but I did not see evidence of hydronephrosis or an obvious obstructing stone. Read as follows by Radiology:FINDINGS: Limited evaluation of the solid organs without the use of intravenous contrast. Streak artifact from the total right hip arthroplasty limits evaluation of the pelvic structures. Lower chest: Linear bandlike opacifications of the lung bases likely due to subsegmental atelectasis and/or scarring. Trace pleural effusions. Normal heart size. No pneumothorax. Liver: Normal. Gallbladder/Biliary: Normal. No biliary ductal dilitation. Pancreas: Normal. Spleen: Normal. Adrenal Glands: Normal. Kidneys: Limited evaluation of the kidneys without the use of intravenous contrast. There are several nonobstructive calculi within the collecting system of the right kidney. No obstructive calculi or hydronephrosis. Ureters: Limited evaluation of the ureters due to the paucity of retroperitoneal fat. No definite hydroureter or obstructive urolithiasis Bladder: Collapsed around a Burns catheter balloon. Bowel: No obstruction or bowel wall thickening. Nonvisualized appendix. No significant colonic diverticulosis. Moderate colonic stool burden. Pelvic organs: The evaluation of the pelvic organs due to the adjacent streak artifact. Peritoneum: No free fluid or pneumoperitoneum. No drainable fluid collection identified. Vessels: No aneurysms. Portal vein remains patent. Moderate atherosclerotic disease. Lymph Nodes: No lymphadenopathy. Abdominal Wall/Soft Tissues: Mild diffuse anasarca. Bones: Status post total right hip arthroplasty. Degenerative changes of the thoracolumbar spine, with ankylosing of the vertebral bodies consistent with ankylosing spondylitis. IMPRESSION: Limited evaluation of the solid organs without the use of intravenous contrast. The paucity of intra-abdominal fat limits evaluation of the abdominal pelvic contents. 1. No definite renal mass or obstructive urolithiasis is identified. If clinically warranted, consider further evaluation with a contrast enhanced CT urogram. 2. Findings compatible with ankylosing spondylitis. No acute osseous abnormalities. 3. No drainable abscesses identified. Patient's blood pressure is significantly improved on norepinephrine 2.5 mics per minute. Systolic in the 1 teens, map of 79. Was able to find a bed at [place], patient will be transferred there as soon as we get a formal bed assignment. Critical care 60 minutes Vital Signs Vital signs: Initial Vital Signs Temperature 96 F L 01/14/23 11:35 Temperature Source Temporal Artery Scan 01/14/23 11:35 Pulse Rhythm Regular 01/14/23 11:35 Respiratory Rate 16 01/14/23 11:35 Blood Pressure 76/52 L 01/14/23 11:35 Blood Pressure Mean 60 L 01/14/23 11:35 Blood Pressure Position Supine 01/14/23 11:35 Pulse Oximetry 90 01/14/23 11:35 Oxygen Delivery Method Room Air 01/14/23 11:35 Vital Signs Temperature 96 F L 01/14/23 11:35 Respiratory Rate 16 01/14/23 11:35 Blood Pressure 76/52 L 01/14/23 11:35 Pulse Oximetry 90 01/14/23 11:35 Oxygen Delivery Method Room Air 01/14/23 11:35 Temperature 96 F L 01/14/23 11:35 Pulse Rate 74 01/14/23 16:32 Respiratory Rate 16 01/14/23 11:35 Blood Pressure 111/59 L 01/14/23 16:32 Pulse Oximetry 98 01/14/23 16:32 Oxygen Delivery Method Room Air 01/14/23 11:35 Medications Administered Medications: Generic Name Dose Route Start Last Admin Trade Name Freq PRN Reason Stop Dose Admin Norepinephrine/Dextrose 4,000 mcg in 250 mls @ 18.711 mls/hr 01/14/23 13:44 01/14/23 14:21 Norepinephrine 4 Mg/250 Ml IV 0.05 mcg/kg/min CONT PRN 9.36 mls/hr Titration Protocol 0.1 MCG/KG/MIN Discontinued Medications Generic Name Dose Route Start Last Admin Trade Name Freq PRN Reason Stop Dose Admin Sodium Chloride 1,000 mls @ 1,000 mls/hr 01/14/23 12:00 01/14/23 13:01 0.9 % Sodium Chloride 1000 Ml IV 01/14/23 12:59 Infused .Q1H JACOBY Infusion Piperacillin Sod/Tazobactam 100 mls @ 100 mls/hr 01/14/23 12:35 01/14/23 14:23 Sod 3.375 gm/ Sodium Chloride IVPB 01/14/23 12:36 Infused ONCE ONE Infusion Vancomycin HCl 1,000 mg/ 260 mls @ 255 mls/hr 01/14/23 12:35 01/14/23 14:43 Sodium Chloride IVPB 01/14/23 13:36 Infused ONCE ONE Infusion Protocol Sodium Chloride 1,000 mls @ 1,000 mls/hr 01/14/23 12:45 01/14/23 14:23 0.9 % Sodium Chloride 1000 Ml IV 01/14/23 13:44 Infused .Q1H JACOBY Infusion Medical Decision Making Lab Data Labs: Lab Results 01/14/23 01/14/23 01/14/23 Range/Units 11:58 12:10 12:16 WBC 27.63 H* (4.50-11.00) K/uL RBC 3.95 L (4.00-5.20) m/uL Hgb 13.0 (12.0-16.0) gm/dL Hct 41.3 (33.0-51.0) % MCV 105 H (80-100) fL MCH 33 (26-34) pg MCHC 32 (32-36) gm/dL RDW Coeff of Edmundo 15.2 (11.5-15.5) % Plt Count 271 (140-440) K/uL Neut % (Auto) 89.4 H (42.0-72.0) % Lymph % (Auto) 3.6 L (20-44) % [place] % (Auto) 6.5 (0.0-11.0) % Eos % (Auto) 0.0 (0.0-7.0) % Baso % (Auto) 0.1 (0.0-3.0) % Neut # (Auto) 24.70 H (1.7-7.0) K/uL Lymph # (Auto) 1.00 (0.90-2.90) K/uL [place] # (Auto) 1.80 H (0.00-0.90) K/UL Eos # (Auto) 0.00 (0.00-0.50) K/uL Baso # (Auto) 0.00 (0.00-0.30) K/uL Abs Immat Gran (auto) 0.10 (0.00-0.30) K/uL Imm/Tot Granulo (auto) 0.4 % Diff Slide Review Acceptable Review (Acceptable) VBG pH 7.358 (7.32-7.43) VBG pCO2 53 H (40-50) mmHG VBG pO2 71.5 H (25-47) mmHG VBG HCO3 30 H (21-28) mmol/L Sodium 135 (135-149) mmol/L Potassium 4.6 (3.6-5.1) mmol/L Chloride 102 (96-114) mmol/L Carbon Dioxide 25 (20-32) mmol/L Anion Gap 8 (7-15) mEq/L BUN 28 (7-30) mg/dL Creatinine 0.3 L (0.5-1.5) mg/dL Estimated Creat Clear 166.89 Estimated GFR 125 ml/min Glucose 92 (60-115) mg/dL Lactate 1.4 (0.5-1.9) mmol/L Calcium 9.2 (8.4-10.6) mg/dL Magnesium 2.0 (1.5-2.6) mg/dL Total Bilirubin 0.7 (0.1-1.5) mg/dL Direct Bilirubin 0.2 (0.0-0.5) mg/dL AST 25 (12-35) U/L ALT 13 (4-35) U/L Alkaline Phosphatase 88 (40-150) U/L C-Reactive Protein 5.0 H (0.5-1.0) mg/dL NT-Pro-B Natriuret Pep 653 pg/mL Total Protein 7.3 (6.0-8.3) g/dL Albumin 3.8 (3.3-5.0) g/dL TSH 0.725 (0.270-4.200) uIU/mL Urine Color Red A (Yellow) Urine Appearance Cloudy A (Clear) Urine pH 6.5 (5.0-8.5) Ur Specific [place] 1.020 (1.000-1.030) Urine Protein 3+ A (Negative) Urine Glucose (UA) Negative (Negative) Urine Ketones 1+ A (Negative) Urine Blood 3+ A (Negative) Urine Nitrite Positive A (Negative) Urine Bilirubin 3+ A (Negative) Urine Urobilinogen 2.0 A (0.2-1.0) Ur Leukocyte Esterase 3+ A (Negative) Urine RBC >100 A (0-2) Urine WBC 50-100 A (0-5) Ur Squamous Epith Cells Many A (None-Few) Urine Bacteria Moderate A (None) SARS-CoV-2 (PCR) Negative SARS-CoV-2 (Negative) Influenza Type A (PCR) Negative PCR FLU A (Negative) Influenza Type B (PCR) Negative PCR FLU B (Negative) RSV (PCR) Negative PCR RSV (Negative) Discharge Plan Discharge Clinical Impression: UTI (urinary tract infection), Sepsis Patient Disposition: [facility] Condition: Improved Prescriptions: No Action nitrofurantoin macrocrystal 50 mg capsule 50 mg PO QPM meloxicam 15 mg tablet 15 mg PO DAILY tramadol 50 mg tablet 50 mg PO Q6H PRN baclofen 10 mg tablet 20 mg PO 3XD gabapentin 300 mg capsule 900 mg PO QID Myrbetriq 50 mg tablet extended release 24 hr PO Stand Alone Forms: My[facility] Info Instructions
[2023-01-14] MEDS: 0.9 % SODIUM CHLORIDE 1000 ml 1,000 ML IV ×2 (12:02→13:01)
[2023-01-14 12:06] LABS: Basophils Percent Auto 0.1 % (0.0-3.0); HCO3 VBG 30 mmol/L (21-28); Hematocrit 41.3 % (33.0-51.0); Immature Granulocytes Pct Auto 0.4 %; Lymphocytes Percent Auto 3.6 % (20-44); Mean Corpuscular HGB Conc 32 gm/dL (32-36); Mean Corpuscular Hemoglobin 33 pg (26-34); Mean Corpuscular Volume 105 fL (80-100); Monocytes Percent Auto 6.5 % (0.0-11.0); Neutrophils Percent Auto 89.4 % (42.0-72.0); PCO2 VBG 53 mmHG (40-50); PO2 VBG 71.5 mmHG (25-47); Platelet Count* 271 K/uL (140-440); RDW Coefficient of Variation % 15.2 % (11.5-15.5); Red Blood Count 3.95 m/uL (4.00-5.20); pH VBG 7.358 (7.32-7.43)
[2023-01-14 12:09] LABS: Lactate Sepsis w/Reflex* 1.4 mmol/L (0.5-1.9)
[2023-01-14 12:23] LABS: Appearance Urine Cloudy (Clear); Bilirubin Urine 3+ (Negative); Blood Urine 3+ (Negative); Color Urine Red (Yellow); Glucose Urine Negative (Negative); Ketones Urine 1+ (Negative); Leukocyte Esterase Urine 3+ (Negative); Nitrite Urine Positive (Negative); Protein Urine 3+ (Negative); pH Urine 6.5 (5.0-8.5)
[2023-01-14 12:29] LABS: Slide Review Reflex Yes; White Blood Count* 27.63 K/uL (4.50-11.00)
[2023-01-14 12:30] LABS: Slide Review Acceptable Review (Acceptable)
[2023-01-14 12:40] LABS: Albumin* 3.8 g/dL (3.3-5.0); Chloride* 102 mmol/L (96-114)
[2023-01-14 12:41] LABS: Potassium* 4.6 mmol/L (3.6-5.1); Sodium* 135 mmol/L (135-149)
[2023-01-14 12:43] LABS: Creatinine* 0.3 mg/dL (0.5-1.5); Est. Creatinine Clearance* 166.89; Estimated Glomerular Filt Rate 125 ml/min
[2023-01-14 12:44] LABS: Alanine Aminotransferase* 13 U/L (4-35); Alkaline Phosphatase* 88 U/L (40-150); Anion Gap 8 mEq/L (7-15); Aspartate Amino Transferase* 25 U/L (12-35); Bilirubin Direct* 0.2 mg/dL (0.0-0.5); Bilirubin Total* 0.7 mg/dL (0.1-1.5); Blood Urea Nitrogen* 28 mg/dL (7-30); Calcium* 9.2 mg/dL (8.4-10.6); Carbon Dioxide* 25 mmol/L (20-32); Glucose* 92 mg/dL (60-115); Total Protein* 7.3 g/dL (6.0-8.3)
[2023-01-14 12:52] LABS: PCR FLU A Negative PCR FLU A (Negative); PCR FLU B Negative PCR FLU B (Negative); PCR RSV Negative PCR RSV (Negative)
[2023-01-14 13:00] LABS: NT Pro B Type NatriureticPept* 653 pg/mL
[2023-01-14] MEDS: PIPERACILLIN/TAZOBACTAM 3.375 GM in 0.9 % SODIUM CHLORIDE Mini-bag 100 ML IVPB (13:01)
[2023-01-14 13:07] LABS: SARS PCR* Negative SARS-CoV-2 (Negative)
--- NOTE | 2023-01-14 13:11 | CRLHL7_ITS ---
For Patients: As a result of the 21st Century Cures Act, medical imaging exams and procedure reports are released immediately into your electronic medical record. You may view this report before your referring provider. If you have questions, please contact your health care provider. INDICATION: Sepsis, hematuria. TECHNIQUE: Multiplanar CT examination of the abdomen and pelvis regard without the use of intravenous contrast. COMPARISON: None. FINDINGS: Limited evaluation of the solid organs without the use of intravenous contrast. Streak artifact from the total right hip arthroplasty limits evaluation of the pelvic structures. Lower chest: Linear bandlike opacifications of the lung bases likely due to subsegmental atelectasis and/or scarring. Trace pleural effusions. Normal heart size. No pneumothorax. Liver: Normal. Gallbladder/Biliary: Normal. No biliary ductal dilitation. Pancreas: Normal. Spleen: Normal. Adrenal Glands: Normal. Kidneys: Limited evaluation of the kidneys without the use of intravenous contrast. There are several nonobstructive calculi within the collecting system of the right kidney. No obstructive calculi or hydronephrosis. Ureters: Limited evaluation of the ureters due to the paucity of retroperitoneal fat. No definite hydroureter or obstructive urolithiasis Bladder: Collapsed around a Burns catheter balloon. Bowel: No obstruction or bowel wall thickening. Nonvisualized appendix. No significant colonic diverticulosis. Moderate colonic stool burden. Pelvic organs: The evaluation of the pelvic organs due to the adjacent streak artifact. Peritoneum: No free fluid or pneumoperitoneum. No drainable fluid collection identified. Vessels: No aneurysms. Portal vein remains patent. Moderate atherosclerotic disease. Lymph Nodes: No lymphadenopathy. Abdominal Wall/Soft Tissues: Mild diffuse anasarca. Bones: Status post total right hip arthroplasty. Degenerative changes of the thoracolumbar spine, with ankylosing of the vertebral bodies consistent with ankylosing spondylitis. IMPRESSION: Limited evaluation of the solid organs without the use of intravenous contrast. The paucity of intra-abdominal fat limits evaluation of the abdominal pelvic contents. 1. No definite renal mass or obstructive urolithiasis is identified. If clinically warranted, consider further evaluation with a contrast enhanced CT urogram. 2. Findings compatible with ankylosing spondylitis. No acute osseous abnormalities. 3. No drainable abscesses identified. Please note that all CT scans at this facility use dose modulation, iterative reconstruction, and/or weight-based dosing when appropriate to reduce radiation dose to as low as reasonably achievable. Dictated by Anival Sullivan MD @ 01/14/2023 3:51:28 PM (Electronically Signed)
[2023-01-14 13:27] LABS: RBC Urine >100 (0-2); WBC Urine 50-100 (0-5)
[2023-01-14 13:28] LABS: Bacteria Urine Moderate; Squamous Epithelial Cell Urine Many (None-Few)
[2023-01-14 13:39] LABS: TSH With Reflex to FT4* 0.725 uIU/mL (0.270-4.200)
[2023-01-14] MEDS: TRAMADOL HCL 50 MG TABLET PO (17:06)
[2023-01-14] MEDS: GABAPENTIN 300 MG CAPSULE 900 MG PO (17:08)
== END 2023-01-14 17:24 | disposition short-term general hospital (02) ==
PROVIDERS: Emergency Provider Emergency Medicine; PCP Family Medicine
DX: N39.0 Urinary tract infection, site not specified (principal); A41.9 Sepsis, unspecified organism
CPT/HCPCS: 36415; 71045; 74176; 80048; 80076; 81001; 82803; 83605; 83735; 83880; 84443; 84484; 85025; 86140; 87040; 87086; 87186; 87631; 93005; 94761; 96365; 96366; 99284; 99291; A9270; J2543; J3370; J7030; J7050

== ENCOUNTER 2023-01-14 16:55 | Outpatient (CLI) | payer MEDICARE, SELFPAY | END 2023-01-14 16:56 | disposition home or self-care (01) | LOC: AMB 01-17 09:14 | PROVIDERS: PCP Family Medicine; Visit Provider Family Medicine | DX: A41.9 Sepsis, unspecified organism (principal); N39.0 Urinary tract infection, site not specified | CPT/HCPCS: A0425; A0427 ==

== ENCOUNTER 2023-01-24 13:56 | Outpatient (CLI) | payer MEDICARE, SELFPAY | END 2023-01-24 13:57 | disposition home or self-care (01) | LOC: WOUND 13:56 | PROVIDERS: PCP Family Medicine; Visit Provider Nurse Practitioner Family | DX: M86.68 Other chronic osteomyelitis, other site (principal); L89.314 Pressure ulcer of right buttock, stage 4; L89.324 Pressure ulcer of left buttock, stage 4; L24.A2 Irritant contact dermatitis due to fecal, urinary or dual incontinence; G82.50 Quadriplegia, unspecified; Z99.3 Dependence on wheelchair | CPT/HCPCS: 97597; 99212 ==

== ENCOUNTER 2023-02-01 13:24 | Outpatient (CLI) | payer MEDICARE, SELFPAY | END 2023-02-01 13:25 | disposition home or self-care (01) | LOC: WOUND 13:24 | PROVIDERS: PCP Family Medicine; Visit Provider Family Medicine | DX: M86.68 Other chronic osteomyelitis, other site (principal); L89.314 Pressure ulcer of right buttock, stage 4; L89.324 Pressure ulcer of left buttock, stage 4; G82.50 Quadriplegia, unspecified; Z99.3 Dependence on wheelchair | CPT/HCPCS: 11042; 97605 ==

== ENCOUNTER 2023-02-14 13:53 | Outpatient (CLI) | payer MEDICARE, SELFPAY | END 2023-02-14 13:54 | disposition home or self-care (01) | LOC: WOUND 13:53 | PROVIDERS: PCP Family Medicine; Visit Provider Nurse Practitioner Family | DX: M86.68 Other chronic osteomyelitis, other site (principal); L89.314 Pressure ulcer of right buttock, stage 4; L89.324 Pressure ulcer of left buttock, stage 4; G82.50 Quadriplegia, unspecified; Z99.3 Dependence on wheelchair | CPT/HCPCS: 11042; 97605 ==

== ENCOUNTER 2023-02-21 14:00 | Outpatient (CLI) | payer MEDICARE, SELFPAY | END 2023-02-21 14:01 | disposition home or self-care (01) | LOC: WOUND 14:00 | PROVIDERS: PCP Family Medicine; Visit Provider Nurse Practitioner Family | DX: M86.68 Other chronic osteomyelitis, other site (principal); L89.314 Pressure ulcer of right buttock, stage 4; L89.324 Pressure ulcer of left buttock, stage 4; G82.50 Quadriplegia, unspecified; Z99.3 Dependence on wheelchair | CPT/HCPCS: 11042; 97605 ==

== ENCOUNTER 2023-02-28 14:03 | Outpatient (CLI) | payer MEDICARE, SELFPAY | END 2023-02-28 14:04 | disposition home or self-care (01) | LOC: WOUND 14:03 | PROVIDERS: PCP Family Medicine; Visit Provider Nurse Practitioner Family | DX: M86.68 Other chronic osteomyelitis, other site (principal); L89.314 Pressure ulcer of right buttock, stage 4; L89.324 Pressure ulcer of left buttock, stage 4; G82.50 Quadriplegia, unspecified; Z99.3 Dependence on wheelchair | CPT/HCPCS: 11042; 97605 ==

== ENCOUNTER 2023-03-07 13:55 | Outpatient (CLI) | payer MEDICARE, SELFPAY | END 2023-03-07 13:56 | disposition home or self-care (01) | LOC: WOUND 13:55 | PROVIDERS: PCP Family Medicine; Visit Provider Nurse Practitioner Family | DX: M86.68 Other chronic osteomyelitis, other site (principal); L89.314 Pressure ulcer of right buttock, stage 4; L89.324 Pressure ulcer of left buttock, stage 4; L89.152 Pressure ulcer of sacral region, stage 2; G82.50 Quadriplegia, unspecified; Z99.3 Dependence on wheelchair | CPT/HCPCS: 11042; G0463 ==

== ENCOUNTER 2023-03-14 13:57 | Outpatient (CLI) | payer MEDICARE, SELFPAY | END 2023-03-14 13:58 | disposition home or self-care (01) | LOC: WOUND 13:57 | PROVIDERS: PCP Family Medicine; Visit Provider Nurse Practitioner Family | DX: M86.68 Other chronic osteomyelitis, other site (principal); L89.314 Pressure ulcer of right buttock, stage 4; L89.324 Pressure ulcer of left buttock, stage 4; G82.50 Quadriplegia, unspecified; Z99.3 Dependence on wheelchair | CPT/HCPCS: 11042; 97605 ==

== ENCOUNTER 2023-03-21 13:59 | Outpatient (CLI) | payer MEDICARE, SELFPAY | END 2023-03-21 14:00 | disposition home or self-care (01) | LOC: WOUND 13:59 | PROVIDERS: PCP Family Medicine; Visit Provider Physician Assistant | DX: M86.68 Other chronic osteomyelitis, other site (principal); L89.314 Pressure ulcer of right buttock, stage 4; L89.324 Pressure ulcer of left buttock, stage 4; L24.A2 Irritant contact dermatitis due to fecal, urinary or dual incontinence; G82.50 Quadriplegia, unspecified; Z99.3 Dependence on wheelchair | CPT/HCPCS: 11042 ==

== ENCOUNTER 2023-03-21 16:58 | Emergency (ER) | payer MEDICARE, SELFPAY ==
[2023-03-21 17:27] VITALS: BP 60/37; PULSE 70; RESP 18; TEMP 36.4; O2SAT 91; BMI 17.4
--- NOTE | 2023-03-21 17:48 | XR_ITS ---
INDICATION: HYPOXIA. TECHNIQUE: CHEST ONE-VIEW. COMPARISON: 01/14/2023. FINDINGS: POSTOP CHANGES LOWER CERVICAL SPINE. TORTUOSITY OF THE AORTA. NO DENSE INFILTRATE. NO PULMONARY EDEMA. NO PLEURAL EFFUSION OR PNEUMOTHORAX. ANKYLOSIS THORACIC SPINE. IMPRESSION: NO ACUTE FINDINGS.
--- NOTE | 2023-03-21 18:15 | ED_ITS ---
HPI - General Adult General Chief complaint: Urogenital Problems, Female Stated complaint: Possible UTI Time Seen by Provider: 03/21/23 17:42 History of Present Illness HPI narrative: This 57-year-old female comes in reporting low blood pressure and states that she has suspicion of infection. She states that she was septic in the past. She does not report any fevers. She does think that she she has had some pyuria recently. She arrives here with normal temperature but her blood pressure initially was at 60/37. Her oximetry is at 91% on room air. Her pulse was normal despite the hypotension. The patient states that she does feel lightheaded but does not report any cough or shortness of breath. Related Data Home Medications Medication Instructions Recorded Confirmed baclofen 10 mg tablet 20 mg PO 3XD 12/06/22 03/21/23 gabapentin 300 mg capsule 900 mg PO QID 12/06/22 03/21/23 meloxicam 15 mg tablet 15 mg PO DAILY 12/06/22 03/21/23 nitrofurantoin macrocrystal 50 mg 50 mg PO QPM 12/06/22 03/21/23 capsule tramadol 50 mg tablet 50 mg PO Q6H PRN 12/06/22 03/21/23 oxybutynin chloride 5 mg tablet 5 mg PO BID 03/21/23 03/21/23 oxycodone 5 mg tablet mg PO 03/21/23 Previous Rx's Medication Instructions Recorded cephalexin 500 mg capsule 500 mg PO TID 10 days #30 caps 03/21/23 Allergies Allergy/AdvReac Type Severity Reaction Status Date / Time No Known Drug Allergies Allergy Verified 03/21/23 17:33 Review of Systems Status of ROS: Reports: 10 or more systems reviewed and unremarkable except as noted in History and below Narrative: Constitutional: No fevers, no weight gain or loss. Eyes: No discharge. No vision changes. HENT: No congestion, no sore throat, no ear pain. Cardiovascular: No chest pain, no palpitations. Respiratory: No shortness of breath, no wheezes, no cough. Gastrointestinal: No abdominal pain, no vomiting, no diarrhea. Genitourinary: No hematuria. Musculoskeletal: Normal range of motion. Skin: No rashes, no pruritis. Neurological: No weakness, sensory change, speech change. She reports lightheadedness. Endo/Heme/Allergies: No bruising or bleeding. No polydipsia. Pysch: no suicidality, no anxiety, no insomnia. All other systems reviewed and are negative. [facility] Social History Smoking Status: Current every day smoker How often do you have a drink containing alcohol: never How often do you have six or more drinks on one occasion: Never AUDIT-C Alcohol total score: 0 Non-prescribed substance use: denies use Exam Narrative: Exam Narrative: Constitutional: Well-developed, well-nourished, no acute distress. HEENT: Normocephalic, atraumatic. Neck: Normal range of motion. Nontender. Supple. Heart: Regular. No murmurs. Normal rate. Intact distal pulses. Lungs: Clear to auscultation. No chest discomfort. No wheezes, rhonchi, or rales. Abdomen: Normal bowel sounds. Nontender. Distended but not new for her. No rebound tenderness. Genitalia: Deferred. Back: No midline tenderness. Normal range of motion. Extremities: Normal range of motion. No injury. Skin: Intact. No rash. Warm. No erythema or pallor. Neurologic: No altered sensation. No weakness. Alert and oriented. Psychiatric: No suicidality. No anxiety or depression. No insomnia. Nursing notes and vitals signs are reviewed. Const: Vital Signs, click to edit/add: Vital Signs - 24 hr 03/21/23 17:27 03/21/23 21:52 Temperature 97.6 F Pulse Rate [Pulse Oximeter] 70 74 Respiratory Rate 18 Blood Pressure [Le ft Upper Arm] 60/37 L 126/82 Pulse Oximetry 91 93 Oxygen Delivery Me thod Room Air Room Air Course Vital Signs Vital signs: Initial Vital Signs Temperature 97.6 F 03/21/23 17:27 Temperature Source Temporal Artery Scan 03/21/23 17:27 Pulse Rate 70 03/21/23 17:27 Pulse Rhythm Regular 03/21/23 17:27 Pulse Strength 3+ Normal 03/21/23 17:27 Respiratory Rate 18 03/21/23 17:27 Blood Pressure 60/37 L 03/21/23 17:27 Blood Pressure Mean 44 L 03/21/23 17:27 Blood Pressure Position Sitting 03/21/23 17:27 Pulse Oximetry 91 03/21/23 17:27 Oxygen Delivery Method Room Air 03/21/23 17:27 Vital Signs Temperature 97.6 F 03/21/23 17:27 Pulse Rate 70 03/21/23 17:27 Respiratory Rate 18 03/21/23 17:27 Blood Pressure 60/37 L 03/21/23 17:27 Pulse Oximetry 91 03/21/23 17:27 Oxygen Delivery Method Room Air 03/21/23 17:27 Temperature 97.6 F 03/21/23 17:27 Pulse Rate 74 03/21/23 21:52 Respiratory Rate 18 03/21/23 17:27 Blood Pressure 126/82 03/21/23 21:52 Pulse Oximetry 93 03/21/23 21:52 Oxygen Delivery Method Room Air 03/21/23 21:52 Medications Administered Medications: Discontinued Medications Generic Name Dose Route Start Last Admin Trade Name Freq PRN Reason Stop Dose Admin Sodium Chloride 1,000 mls @ 1,000 mls/hr 03/21/23 17:45 03/21/23 20:35 0.9 % Sodium Chloride 1000 Ml IV 03/21/23 18:44 Infused .Q1H JACOBY Infusion Medical Decision Making MDM Narrative Medical decision making narrative: This patient arrives with concerned that she may be having an infection. Initial blood pressure showed a pressure of 60/37. The patient did report some lightheadedness but had good skin color and was fully functional. This blood pressure reading did not seem realistic. Repeat blood pressure showed 126/82. Other vital signs are in normal range. Chest x-ray was obtained and by my review with radiology report pending there is no evidence of acute cardiopulmonary disease. I did obtain a lactate level which returned in normal range at 1.0. She did receive a L of normal saline intravenously. Other lab results do show an increased serum white blood cell count at around 15. Urinalysis does show evidence of urinary tract infection. She does have a chronic indwelling catheter placing her at risk for infection and recurrence. The patient did receive a g of Rocephin intravenously and a prescription for Keflex. She is okay to be discharged home. Lab Data Labs: Lab Results 03/21/23 03/21/23 Range/Units 17:47 19:02 WBC 15.62 H (4.50-11.00) K/uL RBC 3.57 L (4.00-5.20) m/uL Hgb 11.5 L (12.0-16.0) gm/dL Hct 36.1 (33.0-51.0) % MCV 101 H (80-100) fL MCH 32 (26-34) pg MCHC 32 (32-36) gm/dL RDW Coeff of Edmundo 13.7 (11.5-15.5) % Plt Count 314 (140-440) K/uL Neut % (Auto) 85.2 H (42.0-72.0) % Lymph % (Auto) 6.5 L (20-44) % [place]oard % (Auto) 7.4 (0.0-11.0) % Eos % (Auto) 0.5 (0.0-7.0) % Baso % (Auto) 0.1 (0.0-3.0) % Neut # (Auto) 13.30 H (1.7-7.0) K/uL Lymph # (Auto) 1.00 (0.90-2.90) K/uL Foard # (Auto) 1.20 H (0.00-0.90) K/UL Eos # (Auto) 0.10 (0.00-0.50) K/uL Baso # (Auto) 0.00 (0.00-0.30) K/uL Abs Immat Gran (auto) 0.00 (0.00-0.30) K/uL Imm/Tot Granulo (auto) 0.3 % Sodium 132 L (135-149) mmol/L Potassium 4.2 (3.6-5.1) mmol/L Chloride 97 (96-114) mmol/L Carbon Dioxide 30 (20-32) mmol/L Anion Gap 5 L (7-15) mEq/L BUN 16 (7-30) mg/dL Creatinine 0.4 L (0.5-1.5) mg/dL Estimated Creat Clear 111.52 Estimated GFR 117 ml/min Glucose 129 H (60-115) mg/dL Lactate 1.0 (0.5-1.9) mmol/L Calcium 9.0 (8.4-10.6) mg/dL Total Bilirubin 0.4 (0.1-1.5) mg/dL Direct Bilirubin 0.3 (0.0-0.5) mg/dL AST 15 (12-35) U/L ALT 7 (4-35) U/L Alkaline Phosphatase 91 (40-150) U/L Total Protein 7.1 (6.0-8.3) g/dL Albumin 3.6 (3.3-5.0) g/dL Urine Color Yellow (Yellow) Urine Appearance Cloudy A (Clear) Urine pH 6.0 (5.0-8.5) Ur Specific [place] 1.015 (1.000-1.030) Urine Protein 1+ A (Negative) Urine Glucose (UA) Negative (Negative) Urine Ketones Negative (Negative) Urine Blood 2+ A (Negative) Urine Nitrite Positive A (Negative) Urine Bilirubin Negative (Negative) Urine Urobilinogen 0.2 (0.2-1.0) Ur Leukocyte Esterase 3+ A (Negative) Urine RBC 0-2 (0-2) Urine WBC 25-50 A (0-5) Ur Squamous Epith Cells Few (None-Few) Urine Bacteria Few A (None) POC Troponin I 0.00 L (0.01-0.04) ng/ml ECG Data Attestation: I personally reviewed and interpreted this ECG as follows: Interpretation: Normal sinus rhythm. Rate is 62 beats per minute. There are no ST or T-wave abnormalities. Discharge Plan Discharge Clinical Impression: Urinary tract infection Patient Disposition: Home w/ Parent or Adult Condition: Stable Additional Instructions: Take medication as prescribed. Follow up with MD return if worsening. Prescriptions: New cephalexin 500 mg capsule 500 mg PO TID 10 Days Qty: 30 0RF No Action oxybutynin chloride 5 mg tablet 5 mg PO BID oxycodone 5 mg tablet PO nitrofurantoin macrocrystal 50 mg capsule 50 mg PO QPM meloxicam 15 mg tablet 15 mg PO DAILY tramadol 50 mg tablet 50 mg PO Q6H PRN baclofen 10 mg tablet 20 mg PO 3XD gabapentin 300 mg capsule 900 mg PO QID Follow Up/Referrals: Jazmine Baxter MD [Primary Care Provider] - Stand Alone [facility] Info Inst[facility]
[2023-03-21] MEDS: 0.9 % SODIUM CHLORIDE 1000 ml 1,000 ML IV (19:20)
[2023-03-21 19:47] LABS: Basophils Percent Auto 0.1 % (0.0-3.0); Eosinophils Percent Auto 0.5 % (0.0-7.0); Hematocrit 36.1 % (33.0-51.0); Hemoglobin* 11.5 gm/dL (12.0-16.0); Immature Granulocytes Pct Auto 0.3 %; Lymphocytes Percent Auto 6.5 % (20-44); Mean Corpuscular HGB Conc 32 gm/dL (32-36); Mean Corpuscular Hemoglobin 32 pg (26-34); Mean Corpuscular Volume 101 fL (80-100); Monocytes Percent Auto 7.4 % (0.0-11.0); Neutrophils Percent Auto 85.2 % (42.0-72.0); Platelet Count* 314 K/uL (140-440); RDW Coefficient of Variation % 13.7 % (11.5-15.5); Red Blood Count 3.57 m/uL (4.00-5.20); White Blood Count* 15.62 K/uL (4.50-11.00)
[2023-03-21 20:11] LABS: Albumin* 3.6 g/dL (3.3-5.0); Chloride* 97 mmol/L (96-114); Potassium* 4.2 mmol/L (3.6-5.1); Sodium* 132 mmol/L (135-149)
[2023-03-21 20:14] LABS: Alanine Aminotransferase* 7 U/L (4-35); Alkaline Phosphatase* 91 U/L (40-150); Anion Gap 5 mEq/L (7-15); Aspartate Amino Transferase* 15 U/L (12-35); Bilirubin Direct* 0.3 mg/dL (0.0-0.5); Bilirubin Total* 0.4 mg/dL (0.1-1.5); Blood Urea Nitrogen* 16 mg/dL (7-30); Carbon Dioxide* 30 mmol/L (20-32); Creatinine* 0.4 mg/dL (0.5-1.5); Est. Creatinine Clearance* 111.52; Estimated Glomerular Filt Rate 117 ml/min; Glucose* 129 mg/dL (60-115); Total Protein* 7.1 g/dL (6.0-8.3)
[2023-03-21 20:40] LABS: Slide Review Reflex No
--- NOTE | 2023-03-21 21:06 | ED.NURSE ---
pt leg bag emptied 300ml yellow urine out
[2023-03-21 21:50] LABS: Appearance Urine Cloudy (Clear); Bilirubin Urine Negative (Negative); Blood Urine 2+ (Negative); Color Urine Yellow (Yellow); Glucose Urine Negative (Negative); Ketones Urine Negative (Negative); Leukocyte Esterase Urine 3+ (Negative); Nitrite Urine Positive (Negative); Protein Urine 1+ (Negative); Specific Gravity Urine 1.015 (1.000-1.030); Urobilinogen Urine 0.2 (0.2-1.0)
[2023-03-21 21:52] VITALS: BP 126/82; PULSE 74; O2SAT 93
[2023-03-21 22:06] LABS: RBC Urine 0-2 (0-2)
[2023-03-21 22:07] LABS: Bacteria Urine Few; Squamous Epithelial Cell Urine Few (None-Few); WBC Urine 25-50 (0-5)
[2023-03-21] MEDS: cefTRIAXone 1 GM in 0.9 % SODIUM CHLORIDE Mini-bag 100 ML IVPB (22:23)
--- NOTE | 2023-03-23 14:18 | ED.NURSE ---
left a message on phone to call back about lab result. Dr. Alvarado wants to stop Keflex and start Levaquin 500mg orally daily x 7days.
== END 2023-03-21 23:17 | disposition home or self-care (01) ==
PROVIDERS: Emergency Provider Emergency Medicine Emergency Medical Services; PCP Family Medicine
DX: N39.0 Urinary tract infection, site not specified (principal); M86.68 Other chronic osteomyelitis, other site; L89.314 Pressure ulcer of right buttock, stage 4; L89.324 Pressure ulcer of left buttock, stage 4; L24.A2 Irritant contact dermatitis due to fecal, urinary or dual incontinence; G82.50 Quadriplegia, unspecified; Z99.3 Dependence on wheelchair
CPT/HCPCS: 11042; 36415; 71045; 80048; 80076; 81001; 83605; 84484; 85025; 87040; 87086; 87186; 93005; 96365; 97605; 99284; J0696; J7030

== ENCOUNTER 2023-03-28 13:58 | Outpatient (CLI) | payer MEDICARE, SELFPAY | END 2023-03-28 13:59 | disposition home or self-care (01) | LOC: WOUND 13:58 | PROVIDERS: PCP Family Medicine; Visit Provider Nurse Practitioner Family | DX: M86.68 Other chronic osteomyelitis, other site (principal); L89.314 Pressure ulcer of right buttock, stage 4; L89.324 Pressure ulcer of left buttock, stage 4; G82.50 Quadriplegia, unspecified; Z99.3 Dependence on wheelchair | CPT/HCPCS: 11042; 97605 ==

== ENCOUNTER 2023-04-11 13:57 | Outpatient (CLI) | payer MEDICARE, SELFPAY | END 2023-04-11 13:58 | disposition home or self-care (01) | LOC: WOUND 13:57 | PROVIDERS: PCP Family Medicine; Visit Provider Nurse Practitioner Family | DX: M86.68 Other chronic osteomyelitis, other site (principal); L89.314 Pressure ulcer of right buttock, stage 4; L89.324 Pressure ulcer of left buttock, stage 4; G82.50 Quadriplegia, unspecified; Z99.3 Dependence on wheelchair | CPT/HCPCS: 11042; 97597 ==

== ENCOUNTER 2023-04-22 10:01 | Inpatient (IN) | payer MEDICARE, SELFPAY ==
[2023-04-22] VITALS (35 sets, daily range): BP systolic 71–140; BP diastolic 47–103; PULSE 55–78; RESP 14–18; TEMP 36.3–36.8; O2SAT 78–100; BMI 17.2
--- NOTE | 2023-04-22 10:58 | XR_ITS ---
Patient: JAIRO ANTONIO Facility:?[facility] Patient ID:?[id number] Site Patient ID:?[id number]. Site :?[id number] Study:?XRay-Chest 1V-04/22/2023 11:48:08 AM Ordering Physician:?DR. GONZALEZ Final Report: INDICATION: HYPOTENSION TECHNIQUE: Chest 1 view COMPARISON: 03/21/2023 FINDINGS: Postop changes lower cervical spine. Cardiac silhouette enlarged. Aortic tortuosity. No pleural effusion. Similar appearance of the interstitial markings. IMPRESSION: No acute findings. Dictated by Miguel Daniels MD @ 04/22/2023 12:06:10 PM Signed by:?Miguel Daniels MD @04/22/2023 12:06:10 PM (Electronic Signature)
--- NOTE | 2023-04-22 11:08 | ED_ITS ---
HPI - General Adult General Chief complaint: Hypotension Stated complaint: low blood pressure, sent by home health nurse Time Seen by Provider: 04/22/23 10:56 Source: patient Mode of arrival: wheelchair Limitations: no limitations History of Present Illness HPI narrative: 57-year-old, paraplegic female presenting today at the request of the home health nurse for low blood pressures. Patient was having a wound visit earlier (she has a decubitus ulcer), per nursing the wound looks like it is healing well, however her blood pressures were quite low. Per the patient she states that she has not felt quite right since yesterday. Complains of increased fatigue and decreased appetite. Denies fevers or chills. Denies cough. She states that she is not short of breath. She denies chest or abdominal pain. She is concerned about the possibility of a UTI. States that she has had these before with catheter changes, she just had her catheter changed 1 week ago Tuesday. She also stated that she felt slightly nauseated earlier today. Related Data Home Medications Medication Instructions Recorded Confirmed baclofen 10 mg tablet 20 mg PO 3XD 12/06/22 04/22/23 gabapentin 300 mg capsule 900 mg PO QID 12/06/22 04/22/23 meloxicam 15 mg tablet 15 mg PO DAILY 12/06/22 04/22/23 nitrofurantoin macrocrystal 50 mg 50 mg PO QPM 12/06/22 04/22/23 capsule tramadol 50 mg tablet 50 mg PO Q6H PRN 12/06/22 04/22/23 oxybutynin chloride 5 mg tablet 5 mg PO BID 03/21/23 04/22/23 oxycodone 5 mg tablet 5 mg PO 03/21/23 folic acid 1 mg tablet 1 mg PO DAILY 04/22/23 04/22/23 Previous Rx's Medication Instructions Recorded cephalexin 500 mg capsule 500 mg PO TID 10 days #30 caps 03/21/23 Allergies Allergy/AdvReac Type Severity Reaction Status Date / Time No Known Drug Allergies Allergy Verified 04/22/23 15:53 Review of Systems Status of ROS: Reports: 10 or more systems reviewed and unremarkable except as noted in History and below PFSH PFSH Social History Smoking Status: Current every day smoker What tobacco products do you use: cigarettes How often do you have a drink containing alcohol: never How often do you have six or more drinks on one occasion: Never AUDIT-C Alcohol total score: 0 Non-prescribed substance use: denies use Exam Narrative: Exam Narrative: Thin patient in no acute distress. Alert and oriented x3. Answers questions appropriately. Mood and affect are appropriate. Thoughts are goal oriented and rational. No tangential or magical thinking noted. Patient speaks in full sentences without needing to catch her breath. Does smell of tobacco. HEENT: Normocephalic atraumatic. Pupils are equally round reactive to light. Extraocular muscles are intact. Conjunctivae are moist, slightly pale, without any icterus noted. Mildly dry mucous membranes. Posterior pharynx is normal. Neck is soft without any lymphadenopathy or thyromegaly. No masses are appreciated. Cardiovascular: Heart is regular rate and rhythm S1 and S2 are present without any murmurs. Lungs: Clear to auscultation bilaterally no wheezes rhonchi or rales are appreciated. Patient takes deep breaths without any discomfort. Abdomen: Soft and slightly distended (this is not new). Normal bowel sounds. Nontender. Extremities: Bilateral lower extremities are without edema. Skin: Well perfused. Did not repeat examination of her buttocks since she just had her wound redressed prior to coming to the ED. Const: Vital Signs, click to edit/add: Vital Signs - 24 hr 04/22/23 10:36 04/22/23 10:58 04/22/23 11:17 Temperature 97.7 F Pulse Rate 66 Pulse Rate [Pulse Oximeter] 76 Respiratory Rate 14 Blood Pressure 86/53 L Blood Pressure [Le ft Upper Arm] 71/47 L Pulse Oximetry 79 L 93 79 L Oxygen Delivery Me thod Room Air Oxygen Flow Rate 04/22/23 11:18 04/22/23 11:24 04/22/23 11:30 Temperature Pulse Rate 68 65 58 L Pulse Rate [Pulse Oximeter] Respiratory Rate Blood Pressure 105/62 Blood Pressure [Le ft Upper Arm] Pulse Oximetry 81 L 86 L 91 Oxygen Delivery Me thod OxyMask Oxygen Flow Rate 2 04/22/23 11:31 04/22/23 11:32 04/22/23 11:46 Temperature Pulse Rate 55 L 57 L 62 Pulse Rate [Pulse Oximeter] Respiratory Rate Blood Pressure 115/68 115/78 Blood Pressure [Le ft Upper Arm] Pulse Oximetry 91 87 L 91 Oxygen Delivery Me thod OxyMask OxyMask OxyMask Oxygen Flow Rate 2 2 2 04/22/23 12:00 04/22/23 12:03 04/22/23 12:17 Temperature Pulse Rate 65 63 59 L Pulse Rate [Pulse Oximeter] Respiratory Rate Blood Pressure 126/55 L Blood Pressure [Le ft Upper Arm] Pulse Oximetry 88 90 91 Oxygen Delivery Me thod OxyMask OxyMask OxyMask Oxygen Flow Rate 2 2 2 04/22/23 12:30 04/22/23 12:31 04/22/23 12:46 Temperature Pulse Rate 61 59 L 60 Pulse Rate [Pulse Oximeter] Respiratory Rate Blood Pressure 118/77 115/52 L Blood Pressure [Le ft Upper Arm] Pulse Oximetry 93 95 85 L Oxygen Delivery Me thod OxyMask OxyMask OxyMask Oxygen Flow Rate 2 2 2 04/22/23 13:00 04/22/23 13:02 04/22/23 13:16 Temperature Pulse Rate 57 L 55 L 61 Pulse Rate [Pulse Oximeter] Respiratory Rate Blood Pressure 138/103 H 140/88 H Blood Pressure [Le ft Upper Arm] Pulse Oximetry 94 93 92 Oxygen Delivery Me thod OxyMask OxyMask OxyMask Oxygen Flow Rate 2 2 2 04/22/23 13:30 04/22/23 13:49 04/22/23 14:00 Temperature Pulse Rate 61 63 69 Pulse Rate [Pulse Oximeter] Respiratory Rate Blood Pressure Blood Pressure [Le ft Upper Arm] Pulse Oximetry 91 95 93 Oxygen Delivery Me thod OxyMask OxyMask OxyMask Oxygen Flow Rate 2 2 2 04/22/23 14:04 04/22/23 14:05 04/22/23 14:19 Temperature Pulse Rate 68 68 75 Pulse Rate [Pulse Oximeter] Respiratory Rate Blood Pressure Blood Pressure [Le ft Upper Arm] Pulse Oximetry 100 96 92 Oxygen Delivery Me thod OxyMask OxyMask OxyMask Oxygen Flow Rate 2 2 2 04/22/23 14:30 04/22/23 15:00 04/22/23 15:55 Temperature Pulse Rate 69 70 78 Pulse Rate [Pulse Oximeter] Respiratory Rate Blood Pressure Blood Pressure [Le ft Upper Arm] Pulse Oximetry 93 92 96 Oxygen Delivery Me thod OxyMask OxyMask OxyMask Oxygen Flow Rate 2 2 2 04/22/23 16:00 04/22/23 16:30 04/22/23 17:00 Temperature Pulse Rate 74 65 58 L Pulse Rate [Pulse Oximeter] Respiratory Rate Blood Pressure Blood Pressure [Le ft Upper Arm] Pulse Oximetry 92 83 L 97 Oxygen Delivery Me thod OxyMask Oxygen Flow Rate 2 2 Course Course ED Course: Patient presents with hypotension and hypoxia. A IV was established and patient received a L of normal saline as well as IV Rocephin given her recurrent history of UTIs. Unfortunately, we did lose the IV at this point. Patient was placed on an OxyMask secondary to hypoxia. She remained around 90% while on 2 L with the Oxy mask. Because of this hypoxia my suspicion for PE is heightened and a CT PE protocol is ordered. However due to the inability of to established an IV, anesthesia had to be called and so it took some time between when the order was placed on the scan was done. In the meantime lab work did return: CBC showed a white cell count of 10.6, hemoglobin is 11.6, platelet count was 172. Chemistry shows sodium 134, potassium is 4.2, BUN 20, creatinine 0.3. Fortunately the point of care troponin came back markedly elevated at 0.3. Because of this a troponin I was sent to the lab this was elevated at 0.12. EKG showed sinus bradycardia with a pulse of 58, inverted T-waves in V1 V2 and V3. T-wave inversions in V1 and V2 are old. CRP slightly elevated at 3, D-dimer was normal at 0.33. Fluids did seem to help blood pressure quite a bit blood pressure is 1 up into the 1 teens, and then to 140 systolic. Her UA was grossly positive for signs of infection. Her catheter was changed. Repeat troponin was elevated at 0.[address] with PE protocol was delayed after the IV was placed, as the computer system was down. Upon completion, CT was negative for PE however did have probable pneumonia. Patient did remain hypoxic, requiring 2 L OxyMask. I did consult with drafter patent at [facility] who felt that the elevated troponin was likely secondary to hypoperfusion given that the patient was not having any chest pain or significant EKG changes. Vital Signs Vital signs: Initial Vital Signs Temperature 97.7 F 04/22/23 10:36 Temperature Source Temporal Artery Scan 04/22/23 10:36 Pulse Rate 76 04/22/23 10:36 Respiratory Rate 14 04/22/23 10:36 Blood Pressure 71/47 L 04/22/23 10:36 Blood Pressure Mean 55 L 04/22/23 10:36 Blood Pressure Position Sitting 04/22/23 10:36 Pulse Oximetry 79 L 04/22/23 10:36 Oxygen Delivery Method Room Air 04/22/23 10:36 Vital Signs Temperature 97.7 F 04/22/23 10:36 Pulse Rate 76 04/22/23 10:36 Respiratory Rate 14 04/22/23 10:36 Blood Pressure 71/47 L 04/22/23 10:36 Pulse Oximetry 79 L 04/22/23 10:36 Oxygen Delivery Method Room Air 04/22/23 10:36 Temperature 97.7 F 04/22/23 10:36 Pulse Rate 58 L 04/22/23 17:00 Respiratory Rate 14 04/22/23 10:36 Blood Pressure 140/88 H 04/22/23 13:16 Pulse Oximetry 97 04/22/23 17:00 Oxygen Delivery Method OxyMask 04/22/23 16:00 Oxygen Flow Rate 2 04/22/23 17:00 Medications Administered Medications: Discontinued Medications Generic Name Dose Route Start Last Admin Trade Name Freq PRN Reason Stop Dose Admin Ceftriaxone Sodium 1 gm 04/22/23 11:21 04/22/23 12:53 Ceftriaxone 1 Gm Vial IVPB 04/22/23 11:22 1 gm ONCE ONE Administration Sodium Chloride 1,000 mls @ 1,000 mls/hr 04/22/23 11:00 04/22/23 12:40 0.9 % Sodium Chloride 1000 Ml IV 04/22/23 11:59 Infused .Q1H JACOBY Infusion Medical Decision Making MDM Narrative Medical decision making narrative: 57-year-old female with hypoxia, pneumonia, UTI. Patient will be admitted for further management. Medical Records Medical records reviewed: Yes I reviewed the patient's medical records Lab Data Lab results reviewed: Yes I reviewed the patient's lab results Labs: Lab Results 04/22/23 04/22/23 04/22/23 Range/Units 11:25 11:26 11:42 WBC 10.61 (4.50-11.00) K/uL RBC 3.58 L (4.00-5.20) m/uL Hgb 11.6 L (12.0-16.0) gm/dL Hct 38.4 (33.0-51.0) % MCV 107 H (80-100) fL MCH 32 (26-34) pg MCHC 30 L (32-36) gm/dL RDW Coeff of Edmundo 16.3 H (11.5-15.5) % Plt Count 172 (140-440) K/uL Neut % (Auto) 77.5 H (42.0-72.0) % Lymph % (Auto) 13.9 L (20-44) % Pratt % (Auto) 6.6 (0.0-11.0) % Eos % (Auto) 1.6 (0.0-7.0) % Baso % (Auto) 0.3 (0.0-3.0) % Neut # (Auto) 8.20 H (1.7-7.0) K/uL Lymph # (Auto) 1.50 (0.90-2.90) K/uL Pratt # (Auto) 0.70 (0.00-0.90) K/UL Eos # (Auto) 0.17 (0.00-0.50) K/uL Baso # (Auto) 0.03 (0.00-0.30) K/uL Abs Immat Gran (auto) 0.01 (0.00-0.30) K/uL Imm/Tot Granulo (auto) 0.1 % D-Dimer Quant (PE/DVT) (0.00-0.50) ug/ml Sodium (135-149) mmol/L Potassium (3.6-5.1) mmol/L Chloride (96-114) mmol/L Carbon Dioxide (20-32) mmol/L Anion Gap (7-15) mEq/L BUN (7-30) mg/dL Creatinine (0.5-1.5) mg/dL Estimated Creat Clear Estimated GFR ml/min Glucose (60-115) mg/dL Lactate (0.5-1.9) mmol/L Calcium (8.4-10.6) mg/dL Troponin I (0.01-0.04) ng/mL C-Reactive Protein (0.5-1.0) mg/dL Procalcitonin (<0.50) ng/mL Urine Color (Yellow) Urine Appearance (Clear) Urine pH (5.0-8.5) Ur Specific [place] (1.000-1.030) Urine Protein (Negative) Urine Glucose (UA) (Negative) Urine Ketones (Negative) Urine Blood (Negative) Urine Nitrite (Negative) Urine Bilirubin (Negative) Urine Urobilinogen (0.2-1.0) Ur Leukocyte Esterase (Negative) Urine RBC (0-2) Urine WBC (0-5) Ur Squamous Epith Cells (None-Few) Other Sediment (None) Urine Bacteria (None) SARS-CoV-2 (PCR) Negative SARS-CoV-2 (Negative) Influenza Type A (PCR) Negative PCR FLU A (Negative) Influenza Type B (PCR) Negative PCR FLU B (Negative) RSV (PCR) Negative PCR RSV (Negative) POC Troponin I 0.30 H (0.01-0.04) ng/ml 04/22/23 04/22/23 04/22/23 Range/Units 12:06 13:26 13:50 WBC (4.50-11.00) K/uL RBC (4.00-5.20) m/uL Hgb (12.0-16.0) gm/dL Hct (33.0-51.0) % MCV (80-100) fL MCH (26-34) pg MCHC (32-36) gm/dL RDW Coeff of Edmundo (11.5-15.5) % Plt Count (140-440) K/uL Neut % (Auto) (42.0-72.0) % Lymph % (Auto) (20-44) % Pratt % (Auto) (0.0-11.0) % Eos % (Auto) (0.0-7.0) % Baso % (Auto) (0.0-3.0) % Neut # (Auto) (1.7-7.0) K/uL Lymph # (Auto) (0.90-2.90) K/uL Pratt # (Auto) (0.00-0.90) K/UL Eos # (Auto) (0.00-0.50) K/uL Baso # (Auto) (0.00-0.30) K/uL Abs Immat Gran (auto) (0.00-0.30) K/uL Imm/Tot Granulo (auto) % D-Dimer Quant (PE/DVT) 0.33 (0.00-0.50) ug/ml Sodium 134 L (135-149) mmol/L Potassium 4.2 (3.6-5.1) mmol/L Chloride 100 (96-114) mmol/L Carbon Dioxide 31 (20-32) mmol/L Anion Gap 3 L (7-15) mEq/L BUN 20 (7-30) mg/dL Creatinine 0.3 L (0.5-1.5) mg/dL Estimated Creat Clear 151.72 Estimated GFR 125 ml/min Glucose 97 (60-115) mg/dL Lactate 0.8 (0.5-1.9) mmol/L Calcium 8.7 (8.4-10.6) mg/dL Troponin I 0.12 H* (0.01-0.04) ng/mL C-Reactive Protein 3.0 H (0.5-1.0) mg/dL Procalcitonin < 0.03 L (<0.50) ng/mL Urine Color Yellow (Yellow) Urine Appearance Clear (Clear) Urine pH 6.0 (5.0-8.5) Ur Specific [place] 1.010 (1.000-1.030) Urine Protein Negative (Negative) Urine Glucose (UA) Negative (Negative) Urine Ketones Negative (Negative) Urine Blood 1+ A (Negative) Urine Nitrite Negative (Negative) Urine Bilirubin Negative (Negative) Urine Urobilinogen 0.2 (0.2-1.0) Ur Leukocyte Esterase 3+ A (Negative) Urine RBC 10-25 A (0-2) Urine WBC 10-25 A (0-5) Ur Squamous Epith Cells None (None-Few) Other Sediment (None) Urine Bacteria Few A (None) SARS-CoV-2 (PCR) (Negative) Influenza Type A (PCR) (Negative) Influenza Type B (PCR) (Negative) RSV (PCR) (Negative) POC Troponin I 0.10 H (0.01-0.04) ng/ml 04/22/23 Range/Units 14:33 WBC (4.50-11.00) K/uL RBC (4.00-5.20) m/uL Hgb (12.0-16.0) gm/dL Hct (33.0-51.0) % MCV (80-100) fL MCH (26-34) pg MCHC (32-36) gm/dL RDW Coeff of Edmundo (11.5-15.5) % Plt Count (140-440) K/uL Neut % (Auto) (42.0-72.0) % Lymph % (Auto) (20-44) % Pratt % (Auto) (0.0-11.0) % Eos % (Auto) (0.0-7.0) % Baso % (Auto) (0.0-3.0) % Neut # (Auto) (1.7-7.0) K/uL Lymph # (Auto) (0.90-2.90) K/uL Pratt # (Auto) (0.00-0.90) K/UL Eos # (Auto) (0.00-0.50) K/uL Baso # (Auto) (0.00-0.30) K/uL Abs Immat Gran (auto) (0.00-0.30) K/uL Imm/Tot Granulo (auto) % D-Dimer Quant (PE/DVT) (0.00-0.50) ug/ml Sodium (135-149) mmol/L Potassium (3.6-5.1) mmol/L Chloride (96-114) mmol/L Carbon Dioxide (20-32) mmol/L Anion Gap (7-15) mEq/L BUN (7-30) mg/dL Creatinine (0.5-1.5) mg/dL Estimated Creat Clear Estimated GFR ml/min Glucose (60-115) mg/dL Lactate (0.5-1.9) mmol/L Calcium (8.4-10.6) mg/dL Troponin I 0.14 H* (0.01-0.04) ng/mL C-Reactive Protein (0.5-1.0) mg/dL Procalcitonin (<0.50) ng/mL Urine Color (Yellow) Urine Appearance (Clear) Urine pH (5.0-8.5) Ur Specific [place] (1.000-1.030) Urine Protein (Negative) Urine Glucose (UA) (Negative) Urine Ketones (Negative) Urine Blood (Negative) Urine Nitrite (Negative) Urine Bilirubin (Negative) Urine Urobilinogen (0.2-1.0) Ur Leukocyte Esterase (Negative) Urine RBC (0-2) Urine WBC (0-5) Ur Squamous Epith Cells (None-Few) Other Sediment (None) Urine Bacteria (None) SARS-CoV-2 (PCR) (Negative) Influenza Type A (PCR) (Negative) Influenza Type B (PCR) (Negative) RSV (PCR) (Negative) POC Troponin I (0.01-0.04) ng/ml Imaging Data Chest x-ray: Attestation: I have reviewed the pertinent imaging results. Radiologist's impression: Chest 1 view COMPARISON: 03/21/2023 FINDINGS: Postop changes lower cervical spine. Cardiac silhouette enlarged. Aortic tortuosity. No pleural effusion. Similar appearance of the interstitial markings. IMPRESSION: No acute findings. CT scan - chest: Attestation: I have reviewed the pertinent imaging results. Radiologist's impression: CT chest PE was acquired with 95 cc Isovue 370 IV contrast. COMPARISON: None. FINDINGS: Heart and vasculature: Contrast opacification of the pulmonary arterial tree is adequate. No sign of pulmonary embolism. Cardiomegaly. Pulmonary arterial enlargement. Lungs and pleura: Small bilateral pleural effusions with bibasilar consolidation. Additional peribronchial thickening. No pneumothorax. Lymph nodes/mediastinum: No mediastinal, hilar, or axillary adenopathy. Chest wall: No masses. Upper abdomen: No acute or significant findings. Bones: Unremarkable for age. IMPRESSION: No pulmonary embolism. Small pleural effusions with dense bibasilar consolidation and scattered peribronchial thickening, likely superimposed multifocal pneumonia. Cardiomegaly. Pulmonary hypertension. ECG Data Attestation: I personally reviewed and interpreted this ECG as follows: Discharge Plan Discharge Prescriptions: No Action oxybutynin chloride 5 mg tablet 5 mg PO BID oxycodone 5 mg tablet 5 mg PO cephalexin 500 mg capsule 500 mg PO TID 10 Days Qty: 30 0RF nitrofurantoin macrocrystal 50 mg capsule 50 mg PO QPM meloxicam 15 mg tablet 15 mg PO DAILY tramadol 50 mg tablet 50 mg PO Q6H PRN baclofen 10 mg tablet 20 mg PO 3XD gabapentin 300 mg capsule 900 mg PO QID folic acid 1 mg tablet 1 mg PO DAILY
[2023-04-22] MEDS: 0.9 % SODIUM CHLORIDE 1000 ml 1,000 ML IV (11:15)
[2023-04-22 11:38] LABS: Basophils Absolute Auto 0.03 K/uL (0.00-0.30); Basophils Percent Auto 0.3 % (0.0-3.0); Eosinophils Absolute Auto 0.17 K/uL (0.00-0.50); Eosinophils Percent Auto 1.6 % (0.0-7.0); Hematocrit 38.4 % (33.0-51.0); Hemoglobin* 11.6 gm/dL (12.0-16.0); Immature Granulocytes Abs Auto 0.01 K/uL (0.00-0.30); Immature Granulocytes Pct Auto 0.1 %; Lymphocytes Percent Auto 13.9 % (20-44); Mean Corpuscular HGB Conc 30 gm/dL (32-36); Mean Corpuscular Hemoglobin 32 pg (26-34); Mean Corpuscular Volume 107 fL (80-100); Monocytes Percent Auto 6.6 % (0.0-11.0); Neutrophils Percent Auto 77.5 % (42.0-72.0); Platelet Count* 172 K/uL (140-440); RDW Coefficient of Variation % 16.3 % (11.5-15.5); Red Blood Count 3.58 m/uL (4.00-5.20); White Blood Count* 10.61 K/uL (4.50-11.00)
[2023-04-22 11:41] LABS: Slide Review Reflex No
[2023-04-22 12:11] LABS: PCR FLU A Negative PCR FLU A (Negative); PCR FLU B Negative PCR FLU B (Negative); PCR RSV Negative PCR RSV (Negative); SARS PCR* Negative SARS-CoV-2 (Negative)
[2023-04-22 12:13] LABS: Lactate* 0.8 mmol/L (0.5-1.9)
--- NOTE | 2023-04-22 12:15 | CT_ITS ---
Patient: JAIRO ANTONIO Facility:?[facility] RIS Patient ID:?[id number] Site Patient ID:?[id number]. Site :?[id number] Study:?CT-Chest W/ 95CC ISOVUE-370 PE PROTOCOL-04/22/2023 3:50:36 PM Ordering Physician:Esther Urban Final Report: INDICATION: Shortness of breath, hypoxia. TECHNIQUE: CT chest PE was acquired with 95 cc Isovue 370 IV contrast. COMPARISON: None. FINDINGS: Heart and vasculature: Contrast opacification of the pulmonary arterial tree is adequate. No sign of pulmonary embolism. Cardiomegaly. Pulmonary arterial enlargement. Lungs and pleura: Small bilateral pleural effusions with bibasilar consolidation. Additional peribronchial thickening. No pneumothorax. Lymph nodes/mediastinum: No mediastinal, hilar, or axillary adenopathy. Chest wall: No masses. Upper abdomen: No acute or significant findings. Bones: Unremarkable for age. IMPRESSION: No pulmonary embolism. Small pleural effusions with dense bibasilar consolidation and scattered peribronchial thickening, likely superimposed multifocal pneumonia. Cardiomegaly. Pulmonary hypertension. Please note that all CT scans at this facility use dose modulation, iterative reconstruction, and/or weight-based dosing when appropriate to reduce radiation dose to as low as reasonably achievable. Dictated by Dejon Abbasi MD @ 04/22/2023 4:42:23 PM Signed by:?Dejon Abbasi MD @04/22/2023 4:42:23 PM (Electronic Signature)
[2023-04-22 12:33] LABS: Chloride* 100 mmol/L (96-114); Sodium* 134 mmol/L (135-149)
[2023-04-22 12:34] LABS: Potassium* 4.2 mmol/L (3.6-5.1)
[2023-04-22 12:36] LABS: Creatinine* 0.3 mg/dL (0.5-1.5); Est. Creatinine Clearance* 151.72; Estimated Glomerular Filt Rate 125 ml/min
[2023-04-22 12:37] LABS: Anion Gap 3 mEq/L (7-15); Blood Urea Nitrogen* 20 mg/dL (7-30); Calcium* 8.7 mg/dL (8.4-10.6); Carbon Dioxide* 31 mmol/L (20-32); D Dimer Quantitative* 0.33 ug/ml (0.00-0.50); Glucose* 97 mg/dL (60-115)
[2023-04-22] MEDS: cefTRIAXone 1 GM VIAL IVPB (12:53)
[2023-04-22 12:59] LABS: Procalcitonin* < 0.03 ng/mL (<0.50)
[2023-04-22 14:08] LABS: Troponin I* 0.12 ng/mL (0.01-0.04)
[2023-04-22 14:21] LABS: Appearance Urine Clear (Clear); Bilirubin Urine Negative (Negative); Blood Urine 1+ (Negative); Color Urine Yellow (Yellow); Glucose Urine Negative (Negative); Ketones Urine Negative (Negative); Leukocyte Esterase Urine 3+ (Negative); Nitrite Urine Negative (Negative); Protein Urine Negative (Negative); Urobilinogen Urine 0.2 (0.2-1.0)
[2023-04-22 14:36] LABS: Bacteria Urine Few
[2023-04-22 15:17] LABS: Troponin I* 0.14 ng/mL (0.01-0.04)
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
[2023-04-22] MEDS: BACLOFEN 10 MG TABLET 20 MG PO (19:38)
[2023-04-22] MEDS: GABAPENTIN 600 MG TABLET 900 MG PO (19:38)
[2023-04-22] MEDS: 0.9 % SODIUM CHLORIDE 1000 ml 1,000 ML 125 ML IV (19:54)
[2023-04-22] MEDS: AZITHROMYCIN 250 MG TABLET 500 MG PO (20:45)
[2023-04-22] MEDS: oxyBUTYnin chloride 5 MG TABLET PO (20:46)
[2023-04-22] MEDS: GABAPENTIN 300 MG CAPSULE 900 MG PO (23:00)
[2023-04-22] MEDS: SODIUM CHLORIDE 0.9 % (FLUSH) 10 ML SYRINGE 5 ML IVF (23:01)
[2023-04-22] MEDS: TRAMADOL HCL 50 MG TABLET PO (23:01)
[2023-04-23] VITALS (10 sets, daily range): BP systolic 77–118; BP diastolic 43–76; PULSE 70–105; RESP 16–20; TEMP 36.5–37.3; O2SAT 84–93
[2023-04-23] MEDS: 0.9 % SODIUM CHLORIDE 1000 ml 1,000 ML 125 ML IV ×3 (03:21→21:21)
[2023-04-23] MEDS: TRAMADOL HCL 50 MG TABLET PO ×4 (05:02→23:28)
[2023-04-23] MEDS: GABAPENTIN 300 MG CAPSULE 900 MG PO ×4 (05:02→23:28)
[2023-04-23] MEDS: BACLOFEN 10 MG TABLET 20 MG PO ×3 (05:34→21:53)
[2023-04-23 06:25] LABS: Basophils Absolute Auto 0.02 K/uL (0.00-0.30); Basophils Percent Auto 0.3 % (0.0-3.0); Eosinophils Absolute Auto 0.11 K/uL (0.00-0.50); Eosinophils Percent Auto 1.7 % (0.0-7.0); Hematocrit 34.4 % (33.0-51.0); Hemoglobin* 10.3 gm/dL (12.0-16.0); Immature Granulocytes Abs Auto 0.03 K/uL (0.00-0.30); Immature Granulocytes Pct Auto 0.5 %; Lymphocytes Percent Auto 19.1 % (20-44); Mean Corpuscular HGB Conc 30 gm/dL (32-36); Mean Corpuscular Hemoglobin 32 pg (26-34); Mean Corpuscular Volume 108 fL (80-100); Monocytes Percent Auto 9.2 % (0.0-11.0); Neutrophils Absolute Auto 4.62 K/uL (1.7-7.0); Neutrophils Percent Auto 69.2 % (42.0-72.0); Platelet Count* 183 K/uL (140-440); RDW Coefficient of Variation % 15.8 % (11.5-15.5); White Blood Count* 6.66 K/uL (4.50-11.00)
[2023-04-23 06:31] LABS: HCO3 VBG 34 mmol/L (21-28); Lactate* 0.4 mmol/L (0.5-1.9); PO2 VBG 88.5 mmHG (25-47); pH VBG 7.344 (7.32-7.43)
[2023-04-23 06:34] LABS: PCO2 VBG 62 mmHG (40-50)
--- NOTE | 2023-04-23 06:44 | PC.NURSE ---
End of shift nursing note, care [id number]: Pt alert and oriented. Vitals stable, aside from initial BP soft at 93/55 (similar to prior), IVF of NS 125ml/hr initiated per order and BP improved to 113/70 then 108/62. Pt states chronic 7/10 pain to back and buttock, scheduled medications of baclofen, tramadol and gabapentin admin and pt states pain decreased to 5/10 which she states is as low as her pain will go, tolerating. Baclofen order updated to reflect pt?s home dose/schedule per MD order. Repo with 1 pillow under each side of back/buttock, pt declined further repositioning. Was on 2L via NC at start of shift, weaned to RA but had brief desat episode to 78%, currently on 0.5L NC. [place] patent. Pt able to sleep for a couple hours in between cares, pt states baseline difficulty with and states nothing effective in aiding her in sleep. Declined need for PRN nicotine. Bedtime braces applied to each arm and L leg. Wound vac in place and patent.?Assistant Women'S Tennis Coach rounded on patient during shift.?
[2023-04-23 06:56] LABS: Slide Review Reflex No
[2023-04-23 07:00] LABS: Albumin* 2.9 g/dL (3.3-5.0); Chloride* 106 mmol/L (96-114); Potassium* 4.6 mmol/L (3.6-5.1); Sodium* 138 mmol/L (135-149)
[2023-04-23 07:02] LABS: Anion Gap 0 mEq/L (7-15); Bilirubin Total* 0.3 mg/dL (0.1-1.5); Carbon Dioxide* 32 mmol/L (20-32); Creatinine* 0.2 mg/dL (0.5-1.5); Est. Creatinine Clearance* 227.58; Estimated Glomerular Filt Rate 138 ml/min
[2023-04-23 07:03] LABS: Alanine Aminotransferase* 8 U/L (4-35); Alkaline Phosphatase* 73 U/L (40-150); Aspartate Amino Transferase* 22 U/L (12-35); Blood Urea Nitrogen* 17 mg/dL (7-30); Glucose* 81 mg/dL (60-115)
[2023-04-23 07:04] LABS: Calcium* 8.9 mg/dL (8.4-10.6)
[2023-04-23] MEDS: FOLIC ACID 1 MG TABLET PO (09:04)
[2023-04-23] MEDS: oxyBUTYnin chloride 5 MG TABLET PO ×2 (09:04→21:54)
[2023-04-23] MEDS: ACETAMINOPHEN 325 MG TABLET PO (09:10)
[2023-04-23] MEDS: 0.9 % SODIUM CHLORIDE 500 ML 500 ML IV (11:44)
[2023-04-23] MEDS: cefTRIAXone 1 GM in 0.9 % SODIUM CHLORIDE Mini-bag 100 ML IVPB (12:50)
--- NOTE | 2023-04-23 14:15 | P.IMPN_ITS ---
Progress Note: A&P Assessment and plan (1) Positive blood culture: Problem details: - 04/22 BC 02/08 grew G+ cocci in chains - On ceftriaxone and azithromycin, added vancomycin for the possibility of MRSA. - check blood cultures daily until we have better idea of whether not this is contaminat and speciation Status: Acute (2) Hypoxia: Problem details: - acute hypoxia, likely 2/2 PNA - continue Ceftriaxone and Azithromycin (started 04/21) - RT referral, taper supplemental oxygen as tolerated Status: Acute (3) Pneumonia: Problem details: - multifocal PNA on CT 04/21 - Ceftriaxone and Azithromycin (04/21) Status: Acute (4) Hypotension: Problem details: - likely related to acute illness and decreased po intake; typically runs low at baseline (80s-100s systolic per chart review), likely exacerbation of autonomic dysfunction secondary to quadriplegia, she is asymptomatic with these - afebrile, no tachycardia, normal lactate, mentating normally - continue IVfs and monitor closely. Urine and blood cultures pending Status: Acute (5) Elevated troponin: Problem details: - likely demand from hypotension, patient asymptomatic - follow troponin to peak, telemetry Status: Acute (6) Sacral decubitus ulcer, stage IV: Problem details: - last wound care visit with Home Health nurse on 04/21, was reportedly looking good at that time Status: Chronic (7) Muscle spasticity: Problem details: - continue home medications (Gabapentin, Baclofen, Tramadol) Status: Chronic (8) UTI (urinary tract infection): Problem details: - history of recurrent UTI, + WBC in UA on 04/21 but nitrite negative - has swan in place for neurogenic bladder, last change was 04/15/23 - await urine culture results, on Ceftriaxone (04/21) for PNA - 04/22 I think this is likely colonization rather than infection. Regardless, she is already on ceftriaxone, azithromycin, and vancomycin for pneumonia and positive blood culture. Status: Acute (9) Tobacco use: Problem details: - 02/10-1/2 ppd, has Ativan and patches available prn Status: Chronic (10) Macrocytic anemia: Problem details: - chronic, follows with PCP for this. Recently normal B12 Status: Chronic Subjective Time Seen by Provider: 09:08 Date Seen: 04/23/23 Interval history: Christen says she feels 110%. She denies any specific complaints. She has a neurogenic bladder for which she has an indwelling Swan catheter. She has no trouble with bowel movements, is incontinent, generally having a bowel movement a day, and takes no specific bowel regimen. Exam Narrative: Exam Narrative: General: No acute distress. Awake, alert, oriented. No pallor. No jaundice. Spastic quadriplegia for which she wears braces on offer extremities. Oropharynx: Clear. Mucous membranes slightly dry. Cardiovascular: Regular rate and rhythm. No murmurs, gallops, or rubs. Respiratory: Poor inspiratory effort. Clear to auscultation, no wheezes or crackles. Abdomen: Bowel sounds present. Soft, nondistended, nontender. Extremities: Well-healed partial right foot amputation. Const: Vital Signs, click to edit/add: Vital Signs - 24 hr 04/22/23 14:19 04/22/23 14:30 04/22/23 15:00 Temperature Pulse Rate 75 69 70 Pulse Rate [Pulse Oximeter] Respiratory Rate Blood Pressure [Le ft Arm] Pulse Oximetry 92 93 92 Oxygen Delivery Me thod OxyMask OxyMask OxyMask Oxygen Flow Rate 2 2 2 04/22/23 15:55 04/22/23 16:00 04/22/23 16:30 Temperature Pulse Rate 78 74 65 Pulse Rate [Pulse Oximeter] Respiratory Rate Blood Pressure [Le ft Arm] Pulse Oximetry 96 92 83 L Oxygen Delivery Me thod OxyMask OxyMask Oxygen Flow Rate 2 2 04/22/23 17:00 04/22/23 19:34 04/22/23 19:35 Temperature 97.4 F L 97.5 F L Pulse Rate 58 L Pulse Rate [Pulse Oximeter] 70 64 Respiratory Rate 16 18 Blood Pressure [Le ft Arm] 90/71 93/55 L Pulse Oximetry 97 94 97 Oxygen Delivery Me thod Nasal Cannula Nasal Cannula Oxygen Flow Rate 2 2 2 04/22/23 20:00 04/22/23 22:00 04/22/23 23:00 Temperature Pulse Rate 72 Pulse Rate [Pulse Oximeter] Respiratory Rate 18 Blood Pressure [Le ft Arm] Pulse Oximetry 97 78 L Oxygen Delivery Me thod Nasal Cannula Room Air Oxygen Flow Rate 1 04/22/23 23:00 04/22/23 23:00 04/22/23 23:00 Temperature 98.2 F Pulse Rate Pulse Rate [Pulse Oximeter] 72 76 Respiratory Rate 18 18 18 Blood Pressure [Le ft Arm] 113/70 Pulse Oximetry 91 90 Oxygen Delivery Me thod Nasal Cannula Nasal Cannula Oxygen Flow Rate 2 2 04/23/23 04:00 04/23/23 06:30 04/23/23 07:00 Temperature 98.8 F Pulse Rate Pulse Rate [Pulse Oximeter] 86 99 Respiratory Rate 18 18 Blood Pressure [Le ft Arm] 108/62 Pulse Oximetry 92 92 Oxygen Delivery Me thod Nasal Cannula Nasal Cannula Oxygen Flow Rate 2 0.5 04/23/23 07:00 04/23/23 07:00 04/23/23 08:42 Temperature 99.1 F Pulse Rate 96 Pulse Rate [Pulse Oximeter] 99 Respiratory Rate 18 Blood Pressure [Le ft Arm] 118/65 Pulse Oximetry 86 L 86 L Oxygen Delivery Me thod Nasal Cannula Nasal Cannula Oxygen Flow Rate 0.5 0.5 04/23/23 11:00 04/23/23 11:30 Temperature 98.8 F Pulse Rate Pulse Rate [Pulse Oximeter] 89 74 Respiratory Rate 16 Blood Pressure [Le ft Arm] 77/43 L 85/49 L Pulse Oximetry 93 Oxygen Delivery Me thod OxyMask Oxygen Flow Rate 1 Labs Labs: Laboratory Results - last 24 hr 04/22/23 04/22/23 04/22/23 13:50 14:33 21:09 WBC RBC Hgb Hct MCV MCH MCHC RDW Coeff of Edmundo Plt Count Neut % (Auto) Lymph % (Auto) [place] % (Auto) Eos % (Auto) Baso % (Auto) Neut # (Auto) Lymph # (Auto) [place] # (Auto) Eos # (Auto) Baso # (Auto) Abs Immat Gran (auto) Imm/Tot Granulo (auto) VBG pH VBG pCO2 VBG pO2 VBG HCO3 Sodium Potassium Chloride Carbon Dioxide Anion Gap BUN Creatinine Estimated Creat Clear Estimated GFR Glucose Lactate Calcium Total Bilirubin AST ALT Alkaline Phosphatase Troponin I 0.14 H* 0.10 H* Total Protein Albumin Urine Color Yellow Urine Appearance Clear Urine pH 6.0 Ur Specific [place] 1.010 Urine Protein Negative Urine Glucose (UA) Negative Urine Ketones Negative Urine Blood 1+ A Urine Nitrite Negative Urine Bilirubin Negative Urine Urobilinogen 0.2 Ur Leukocyte Esterase 3+ A Urine RBC 10-25 A Urine WBC 10-25 A Ur Squamous Epith Cells None Other Sediment Urine Bacteria Few A 04/23/23 05:45 WBC 6.66 RBC 3.20 L Hgb 10.3 L Hct 34.4 MCV 108 H MCH 32 MCHC 30 L RDW Coeff of [place] 15.8 H Plt Count 183 Neut % (Auto) 69.2 Lymph % (Auto) 19.1 L [place] % (Auto) 9.2 Eos % (Auto) 1.7 Baso % (Auto) 0.3 Neut # (Auto) 4.62 Lymph # (Auto) 1.30 [place] # (Auto) 0.60 Eos # (Auto) 0.11 Baso # (Auto) 0.02 Abs Immat Gran (auto) 0.03 Imm/Tot Granulo (auto) 0.5 VBG pH 7.344 VBG pCO2 62 H* VBG pO2 88.5 H VBG HCO3 34 H Sodium 138 Potassium 4.6 Chloride 106 Carbon Dioxide 32 Anion Gap 0 L BUN 17 Creatinine 0.2 L Estimated Creat Clear 227.58 Estimated GFR 138 Glucose 81 Lactate 0.4 L Calcium 8.9 Total Bilirubin 0.3 AST 22 ALT 8 Alkaline Phosphatase 73 Troponin I Total Protein 6.0 Albumin 2.9 L Urine Color Urine Appearance Urine pH Ur Specific [place] Urine Protein Urine Glucose (UA) Urine Ketones Urine Blood Urine Nitrite Urine Bilirubin Urine Urobilinogen Ur Leukocyte Esterase Urine RBC Urine WBC Ur Squamous Epith Cells Other Sediment Urine Bacteria Study:?CT Chest W/ 95CC ISOVUE-370 PE PROTOCOL-04/22/2023 3:50:36 PM Ordering Physician:Esther Urban Final Report: INDICATION: Shortness of breath, hypoxia. TECHNIQUE: CT chest PE was acquired with 95 cc Isovue 370 IV contrast. COMPARISON: None. FINDINGS: Heart and vasculature: Contrast opacification of the pulmonary arterial tree is adequate. No sign of pulmonary embolism. Cardiomegaly. Pulmonary arterial enlargement. Lungs and pleura: Small bilateral pleural effusions with bibasilar consolidation. Additional peribronchial thickening. No pneumothorax. Lymph nodes/mediastinum: No mediastinal, hilar, or axillary adenopathy. Chest wall: No masses. Upper abdomen: No acute or significant findings. Bones: Unremarkable for age. IMPRESSION: No pulmonary embolism. Small pleural effusions with dense bibasilar consolidation and scattered peribronchial thickening, likely superimposed multifocal pneumonia. Cardiomegaly. Pulmonary hypertension. Please note that all CT scans at this facility use dose modulation, iterative reconstruction, and/or weight-based dosing when appropriate to reduce radiation dose to as low as reasonably achievable. Dictated by Dejon Abbasi MD @ 04/22/2023 4:42:23 PM (Electronic Signature)
--- NOTE | 2023-04-23 18:17 | PC.NURSE ---
End of Shift: Patient pleasant and cooperative. Temp max 99.1. Rating pain 3-8/10 and managed with scheduled Toradol and PRN Tylenol. 0.5-1L O2 via OxyMask to keep sats above 88%. BP decreased to 77/43 at 1100. Updated MD and 500cc bolus given as ordered. Patient up to chair with 2 assist and ceiling lift. Burns patent. Would vac dressings C/D/I. Coccyx reddened and Mepilex applied.
[2023-04-23] MEDS: AZITHROMYCIN 250 MG TABLET 500 MG PO (20:09)
[2023-04-23] MEDS: ENOXAPARIN 40 MG/0.4 ML INJ SUBCUT (21:53)
[2023-04-24] VITALS (15 sets, daily range): BP systolic 80–154; BP diastolic 48–100; PULSE 63–113; RESP 12–25; TEMP 35.8–36.9; O2SAT 90–99
[2023-04-24] MEDS: ACETAMINOPHEN 325 MG TABLET PO (03:32)
[2023-04-24] MEDS: TRAMADOL HCL 50 MG TABLET PO ×3 (04:32→17:00)
[2023-04-24] MEDS: BACLOFEN 10 MG TABLET 20 MG PO ×2 (04:32→13:30)
[2023-04-24] MEDS: GABAPENTIN 300 MG CAPSULE 900 MG PO ×2 (04:35→11:09)
[2023-04-24] MEDS: 0.9 % SODIUM CHLORIDE 1000 ml 1,000 ML 125 ML IV (06:46)
[2023-04-24 07:10] LABS: Basophils Absolute Auto 0.03 K/uL (0.00-0.30); Basophils Percent Auto 0.3 % (0.0-3.0); Eosinophils Percent Auto 1.1 % (0.0-7.0); Hemoglobin* 11.3 gm/dL (12.0-16.0); Immature Granulocytes Abs Auto 0.69 K/uL (0.00-0.30); Immature Granulocytes Pct Auto 7.5 %; Lymphocytes Percent Auto 12.4 % (20-44); Mean Corpuscular HGB Conc 30 gm/dL (32-36); Mean Corpuscular Hemoglobin 32 pg (26-34); Mean Corpuscular Volume 109 fL (80-100); Monocytes Percent Auto 5.8 % (0.0-11.0); Neutrophils Percent Auto 72.9 % (42.0-72.0); Platelet Count* 183 K/uL (140-440); Red Blood Count 3.49 m/uL (4.00-5.20)
[2023-04-24 07:19] LABS: Chloride* 108 mmol/L (96-114); Potassium* 3.9 mmol/L (3.6-5.1); Slide Review Reflex No; Sodium* 138 mmol/L (135-149)
[2023-04-24 07:22] LABS: Anion Gap 1 mEq/L (7-15); Carbon Dioxide* 29 mmol/L (20-32); Creatinine* 0.2 mg/dL (0.5-1.5); Estimated Glomerular Filt Rate 138 ml/min
[2023-04-24 07:23] LABS: Blood Urea Nitrogen* 12 mg/dL (7-30); Glucose* 109 mg/dL (60-115)
--- NOTE | 2023-04-24 07:23 | PC.NURSE ---
End of shift [id number] ? Pt alert, oriented x 4, cooperative. Pt reported pain in hands and buttocks as 8/10, repositioning and medication given per APR schedule. Pt reported improved and reported tolerating pain level. Pt reported discomfort with OxyMiser mask while awake, switched to nasal cannula at 2L of O2 to improve pt comfort. Pt observed to produce thick, yellow sputum. RN assisted pt with removing sputum from mouth. Burns catheter observed to be patent. Pt reported an episode of extreme discomfort towards the end of shift. RN offered to reposition, pt declined. Pt requested scheduled medication and reported ?not knowing? what could be done to help her feel more comfortable. RN gave scheduled meds per APR and provided emotional support. Pt suggested massage to her back might be helpful. Therapeutic touch provided by RN, pt was repositioned and slight improvement verbalized by pt. Pt observed to be restless at shift end, not observed to sleep during shift. ?
--- NOTE | 2023-04-24 08:21 | RESP.RT ---
Patient not so great as yesterday. 2 lpm NC with spo2 89%. LLL with increased crackles. Patient has IS and RN will assist patient with use of device.
[2023-04-24] MEDS: oxyBUTYnin chloride 5 MG TABLET PO (09:02)
[2023-04-24] MEDS: SODIUM CHLORIDE 0.9 % (FLUSH) 10 ML SYRINGE 5 ML IVF ×2 (09:03→11:52)
[2023-04-24] MEDS: FOLIC ACID 1 MG TABLET PO (09:03)
--- NOTE | 2023-04-24 09:44 | XR_ITS ---
Patient: JAIOR ANTONIO Facility:?[facility] Patient ID:?[id number] Site Patient ID:?[id number]. Site :?[id number] Study:?XRay-Chest 1v portable-04/24/2023 10:22:05 AM Ordering Physician:Nia Final Report: Indication: Follow-up pneumonia, more coughing Comparison: Single-view chest April 22, 2023 Technique: Single AP view chest Findings: There is hyperinflation and chronic interstitial change. There are bibasilar pleural effusions, new from comparison with increasing interstitial and airspace opacities likely representing developing pulmonary edema versus worsening multifocal infiltrates. There is no pneumothorax. The cardiac silhouette is mildly prominent. The bony thorax is grossly intact. Impression: Bibasilar pleural effusions with adjacent compressive atelectasis versus infiltrates with increased interstitial markings likely representing developing pulmonary edema versus multifocal infiltrates. Dictated by Allen Mckeon MD @ 04/24/2023 11:05:12 AM Signed by:?Allen Mckeon MD @04/24/2023 11:05:12 AM (Electronic Signature)
[2023-04-24] MEDS: PIPERACILLIN/TAZOBACTAM 3.375 GM in 0.9 % SODIUM CHLORIDE Mini-bag 100 ML IVPB ×2 (11:30→16:58)
[2023-04-24] MEDS: ALBUTEROL SULFATE 2.5 MG/3 ML VIAL.NEB NEB (11:40)
[2023-04-24] MEDS: FUROSEMIDE 10 MG/ML inj 40 MG IVP (11:51)
[2023-04-24 11:58] LABS: HCO3 VBG 28 mmol/L (21-28); PO2 VBG 72.5 mmHG (25-47)
[2023-04-24 12:01] LABS: PCO2 VBG 75 mmHG (40-50); pH VBG 7.187 (7.32-7.43)
--- NOTE | 2023-04-24 12:17 | RESP.RT ---
Asked to see patient at 11:30 am for change in status. Patient more lethargic and increased respiratory difficulty on 2 lpm nasal cannula. 2.5 mg Albuterol given via aerosol face mask. Patient initiated on Bipap. VBG drawn. Bipap currently at 14/6 R 10 1.0 Isp time, Rise 1. 35%. Per MD will drawn VBG again in 45 minutes to determine next steps of care.
[2023-04-24 12:30] LABS: Troponin I* 0.05 ng/mL (0.01-0.04)
[2023-04-24 13:08] LABS: HCO3 VBG 30 mmol/L (21-28); PO2 VBG 55.4 mmHG (25-47); pH VBG 7.247 (7.32-7.43)
[2023-04-24 13:10] LABS: PCO2 VBG 69 mmHG (40-50)
--- NOTE | 2023-04-24 13:59 | P.IMPN_ITS ---
Progress Note: A&P Assessment and plan (1) Acute hypoxemic respiratory failure: Problem details: She has had over poor inspiratory effort, which I suspect is secondary to quadriplegia and has likely contributed to respiratory failure with hypoxemia and hypercapnia. She she also has respiratory acidosis. Trial of BiPAP has started to improve pH, pCO2, and mental status. Continue BiPAP and recheck VBG in 4 hours. If she continues to improve, will continue this course. If pH, pCO2, or respiratory status do not improve further, then she would likely benefit from mechanical ventilation. Status: Acute (2) Hypercapnia: Problem details: As above Status: Acute (3) Pneumonia: Problem details: - multifocal PNA on CT 04/21 - worse on chest x-ray 04/24/2023 and is associated with worsening respiratory failure. Start BiPAP as above, transition antibiotics to Zosyn plus vancomycin. Her roommate brought in Humira today. It is unclear why she is taking that. Immunosuppression is likely contributing to this situation. Will hold Humira for now. Status: Acute (4) Positive blood culture: Problem details: - 04/22 BC 02/08 grew G+ cocci in chains - On ceftriaxone and azithromycin, added vancomycin for the possibility of MRSA. - check blood cultures daily until we have better idea of whether not this is contaminat and speciation Status: Acute (5) Hypotension: Problem details: - likely related to acute illness and decreased po intake; typically runs low at baseline (80s-100s systolic per chart review), likely exacerbation of autonomic dysfunction secondary to quadriplegia, she is asymptomatic with these - afebrile, no tachycardia, normal lactate, mentating normally - Concern for volume overload. Decrease IVF and give boluses as needed. Status: Acute (6) Elevated troponin: Problem details: - likely demand from hypotension, patient asymptomatic - peaked at 0.14 Status: Acute (7) Sacral decubitus ulcer, stage IV: Problem details: - last wound care visit with Home Health nurse on 04/21, was reportedly looking good at that time - consult wound care for wound vac change tomorrow Status: Chronic (8) Muscle spasticity: Problem details: - continue home medications (Gabapentin, Baclofen, Tramadol) Status: Chronic (9) UTI (urinary tract infection): Problem details: - history of recurrent UTI, + WBC in UA on 04/21 but nitrite negative - has swan in place for neurogenic bladder, last change was 04/15/23 - await urine culture results, on Ceftriaxone (04/21) for PNA - 04/22 I think this is likely colonization rather than infection. Regardless, she is already on ceftriaxone, azithromycin, and vancomycin for pneumonia and positive blood culture. Status: Acute (10) Tobacco use: Problem details: - /-1/2 ppd, has Ativan and patches available prn Status: Chronic (11) Macrocytic anemia: Problem details: - chronic, follows with PCP for this. Recently normal B12 Status: Chronic Time Spent With Patient Total time spent: Today I spent in total of 50 minutes in the patient's room for direct patient ca re. An additional 20 minutes was spent discussing plan of care with the team, reviewing labs, medications, and diagnostics and documenting. Subjective Time Seen by Provider: 08:50 Date Seen: 04/24/23 Interval history: Nurse reported that Christen voiced that she felt worse this morning. The nurse got her up to the chair. I went to see her and she told me that this morning she was feeling achy all over and has more coughing heard, but felt better already, now up in the chair. She about an hour later the nurse came and got me to say that Christen was now very sleepy and did not look well and her breathing had changed. I immediately went to see her and she was grunting and gasping and appeared cyanotic. She was also somnolent, and awaken to stimulation. She told me that even though she is DNR, she would like to be intubated if needed. She said she did not feel well and to ask me to help her. She was scared. Exam Narrative: Exam Narrative: Exam around 9:30 a.m.: General: Severe respiratory distress with gasping and central cyanosis. Somnolent, awakens to touch. Oropharynx: Clear. Mucous membranes slightly dry. Cardiovascular: Mildly tachycardic, regular. No murmurs, gallops, or rubs. Respiratory: Poor inspiratory effort, crackles throughout. Gasping. Abdomen: Bowel sounds present. Soft, protuberant, nontender. Extremities: No extremity edema. Const: Vital Signs, click to edit/add: Vital Signs - 24 hr 04/23/23 15:00 04/23/23 15:00 04/23/23 15:00 Temperature 97.7 F Pulse Rate Pulse Rate [Pulse Oximeter] 70 70 Respiratory Rate 18 18 Blood Pressure [Le ft Arm] 96/62 Pulse Oximetry 92 92 Oxygen Delivery Me thod Nasal Cannula Nasal Cannula Oxygen Flow Rate 0.5 0.5 Fraction of Inspir ed Oxygen 04/23/23 15:00 04/23/23 19:00 04/23/23 23:00 Temperature 98.8 F Pulse Rate 73 97 Pulse Rate [Pulse Oximeter] 86 Respiratory Rate 20 Blood Pressure [Le ft Arm] 114/76 Pulse Oximetry 84 L Oxygen Delivery Me thod Oxygen Flow Rate 0.5 Fraction of Inspir ed Oxygen 04/23/23 23:00 04/23/23 23:00 04/24/23 03:45 Temperature 98.3 F 98.4 F Pulse Rate Pulse Rate [Pulse Oximeter] 105 H 97 Respiratory Rate 20 20 20 Blood Pressure [Le ft Arm] 114/76 131/85 Pulse Oximetry 87 L 87 L 91 Oxygen Delivery Me thod Nasal Cannula Nasal Cannula Nasal Cannula Oxygen Flow Rate 2 Fraction of Inspir ed Oxygen 04/24/23 07:00 04/24/23 07:00 04/24/23 07:00 Temperature 97.7 F Pulse Rate 104 H Pulse Rate [Pulse Oximeter] 110 H Respiratory Rate 18 Blood Pressure [Le ft Arm] 125/88 Pulse Oximetry 90 90 Oxygen Delivery Me thod Nasal Cannula Nasal Cannula Oxygen Flow Rate 2 2 Fraction of Inspir ed Oxygen 04/24/23 07:00 04/24/23 11:00 04/24/23 11:40 Temperature 96.6 F L Pulse Rate Pulse Rate [Pulse Oximeter] 110 H 110 H 113 H Respiratory Rate 18 22 20 Blood Pressure [Le ft Arm] 102/60 108/74 Pulse Oximetry 90 90 Oxygen Delivery Me thod Nasal Cannula BiPAP Oxygen Flow Rate 2 Fraction of Inspir ed Oxygen 04/24/23 12:20 04/24/23 13:00 Temperature Pulse Rate 86 Pulse Rate [Pulse Oximeter] 101 H Respiratory Rate 16 Blood Pressure [Le ft Arm] 125/73 Pulse Oximetry 91 Oxygen Delivery Me thod BiPAP Oxygen Flow Rate Fraction of Inspir ed Oxygen 35 Labs Labs: Laboratory Results - last 24 hr 04/24/23 04/24/23 04/24/23 06:05 11:50 13:00 WBC 9.20 RBC 3.49 L Hgb 11.3 L Hct 38.0 MCV 109 H MCH 32 MCHC 30 L RDW Coeff of Edmundo 16.0 H Plt Count 183 Neut % (Auto) 72.9 H Lymph % (Auto) 12.4 L [place] % (Auto) 5.8 Eos % (Auto) 1.1 Baso % (Auto) 0.3 Neut # (Auto) 6.70 Lymph # (Auto) 1.10 [place] # (Auto) 0.50 Eos # (Auto) 0.10 Baso # (Auto) 0.03 Abs Immat Gran (auto) 0.69 H Imm/Tot Granulo (auto) 7.5 VBG pH 7.187 L* 7.247 L* VBG pCO2 75 H* 69 H* VBG pO2 72.5 H 55.4 H VBG HCO3 28 30 H Sodium 138 Potassium 3.9 Chloride 108 Carbon Dioxide 29 Anion Gap 1 L BUN 12 Creatinine 0.2 L Estimated Creat Clear 253.07 Estimated GFR 138 Glucose 109 Calcium 9.0 Troponin I 0.05 H Imaging Chest x-ray: Radiologist's impression: Study: XRay Chest 1v portable-04/24/2023 10:22:05 AM Ordering Physician: Alva Final Report: Indication: Follow-up pneumonia, more coughing Comparison: Single-view chest April 22, 2023 Technique: Single AP view chest Findings: There is hyperinflation and chronic interstitial change. There are bibasilar pleural effusions, new from comparison with increasing interstitial and airspace opacities likely representing developing pulmonary edema versus worsening multifocal infiltrates. There is no pneumothorax. The cardiac silhouette is mildly prominent. The bony thorax is grossly intact. Impression: Bibasilar pleural effusions with adjacent compressive atelectasis versus infiltrates with increased interstitial markings likely representing developing pulmonary edema versus multifocal infiltrates. Dictated by Allen Mckeon MD @ 04/24/2023 11:05:12 AM (Electronic Signature) ECG Interpretation: 04/24/2023 9:46 a.m. EKG: Sinus tachycardia, 107 beats per minute, rightward axis, borderline EKG.
--- NOTE | 2023-04-24 15:08 | RESP.RT ---
Patient resting on Bipap 14/6, R 10, Rise 1, 1, 28%. Patient RR22 VT 530-731, Ve 15.3, PiP 15, Leak 24, 94% trigger HR 79, 93%. Patient more arousable. Spoke with RN and MD regarding plan for afternoon, evening and night.
[2023-04-24] MEDS: LACTATED RINGERS 500 ML 500 ML IV (16:51)
[2023-04-24] MEDS: LACTATED RINGERS 1000 ML 1,000 ML 75 ML IV (16:51)
[2023-04-24 17:11] LABS: HCO3 VBG 33 mmol/L (21-28); PO2 VBG 81.8 mmHG (25-47); pH VBG 7.287 (7.32-7.43)
[2023-04-24 17:13] LABS: PCO2 VBG 70 mmHG (40-50)
--- NOTE | 2023-04-24 17:33 | P.EN_ITS ---
Chart Event Note Time Seen by Provider: 17:33 Date Seen: 04/24/23 Chart Event Note: 57-year-old female with hypercarbic and hypoxic respiratory failure thought secondary to pneumonia but also possibly heart failure. Elevated troponins. Received diuresis today. Has been relatively hypotensive. Received diuresis with furosemide and excellent urine output. Now is received a fluid bolus with some response to her pressure. On BiPAP. Retaining CO2 with venous pCO2 of 70 and pH of 7.29. PCO2 is stable. PH is slowly improving. Patient is occasionally waking up. BiPAP with settings of FiO2 of 29, IPAP 14 and EPAP 6. Decreased FiO2 to 26 and increased IPAP to 16. Chest x-ray today shows worsening bilateral pulmonary infiltrates. Respirations with decreased breath sounds. No obvious wheezing. Cardiovascular: S1, S2, regular rate and rhythm. No tachycardia. Abdomen is s oft without tenderness. Upper extremities are warm to touch. Lower extremities are cool to touch. Assessment and Plan: Hypoxic and hypercarbic respiratory failure due to pneumonia and possibly heart failure. Continue close monitoring, cautious fluid resuscitation, broad-spectrum antibiotics with Zosyn and vancomycin, MRSA nasal swab, echocardiogram, BiPAP Hypotension. At baseline patient has relatively low blood pressures, systolics around 90 and diastolics around 60. Close monitoring of volume status and fluid resuscitation. May need pressure support. Altered mental status. Improving a bit. Close monitoring especially with BiPAP. Total time spent today is 50 minutes in critical care evaluation and management
[2023-04-24 17:41] LABS: NT Pro B Type NatriureticPept* 2910 pg/mL
[2023-04-24] MEDS: IPRAT-ALBUT 0.5-2.5 MG/3 ML NEB 1 NEB IH (18:22)
--- NOTE | 2023-04-24 19:36 | XR_ITS ---
Patient: JAIRO ANTONIO Facility:?[facility] Patient ID:?[id number] Site Patient ID:?[id number]. Site :?[id number] Study:?XRay-Chest AP PORTABLE-04/24/2023 8:06:42 PM Ordering Physician:?shala tapia Final Report: INDICATION: Intubation TECHNIQUE: 1 view chest radiograph COMPARISON: Earlier the same day FINDINGS: Devices: Endotracheal tube distal tip mid trachea, 3.5 centimeters from the oral. No change in multifocal lung opacities and at least moderate bilateral pleural effusions. No pneumothorax. Heart size is normal. IMPRESSION: Endotracheal tube distal tip mid trachea. Dictated by Massiel Martinez MD @ 04/24/2023 8:16:40 PM Signed by:?Massiel Martinez MD @04/24/2023 8:16:40 PM (Electronic Signature)
[2023-04-24] MEDS: KETAMINE HCL 500 MG in 0.9 % SODIUM CHLORIDE 500 ML 500 ML 30.57 MG IVPB (19:41)
--- NOTE | 2023-04-24 19:49 | P.IMPN_ITS ---
Progress Note: A&P Assessment and plan (1) Acute hypoxemic respiratory failure: Problem details: Primarily due to pneumonia. Possibility of volume overload or heart failure as well. Failing BiPAP. now intubated Status: Acute (2) Positive blood culture: Problem details: - 04/22 BC 02/08 grew G+ cocci in chains Initially treated with ceftriaxone and azithromycin now on vancomycin and Zosyn Status: Acute (3) Hypercapnia: Problem details: As above Status: Acute (4) Hypotension: Problem details: Chronically low blood pressures with hypotension to 82/43 today. Now on low- dose norepinephrine and normotensive Status: Acute (5) Pneumonia: Problem details: - multifocal PNA on CT 04/21 - worse on chest x-ray 04/24/2023 and is associated with worsening respiratory failure. Failing on BiPAP. Intubated transfer to [place] Status: Acute (6) Elevated troponin: Problem details: - likely demand from hypotension, patient asymptomatic - peaked at 0.14. Today 0.05 Status: Acute (7) Neurogenic bladder: Problem details: Indwelling swan catheter Status: Chronic (8) Sacral decubitus ulcer, stage IV: Problem details: Chronic outpatient wound care. Not thought to be the cause of her current illness Status: Chronic Plan Transfer to [facility] for ICU care with intubation and pressors. Dr. Alexandra excepting physician Time Spent With Patient Total time spent: Total time spent this evening is 80 minutes in critical care management with coordination of care, intubation and transfer Subjective Date Seen: 04/24/23 Interval history: 57-year-old female admitted to the hospital with pneumonia 2 days ago. Treated for community-acquired pneumonia but status deteriorated today. She developed hypoxic and hypercarbic respiratory failure. She also had relatively low blood pressures. She was placed on BiPAP. She became too sedated to spontaneously breathe and she mostly stopped triggering the BiPAP. We were able to arouse the patient enough to have a conversation about intubation. This had also occurred earlier in the day. Patient is DNR but does request intubation for temporary rescue of respiratory failure. That conversation was repeated again and her sister, Geeta, was also on the phone for part of the conversation. Norepinephrine at 0.02 mcg per kilos per minute was started in anticipation of more hypotension with intubation. Haritha Zamarripa CRNA performed the intubation using propofol fall and rocuronium. Patient was given Versed 2 mg and started on a ketamine drip. Intubation was performed without difficulty. No hypotension occurred. Her end- tidal CO2 improved significantly. Norepinephrine was reduced to 0.01 micrograms/kilos per minute. Chest x-ray showed good position of the endotracheal tube. Exam Narrative: Exam Narrative: Symmetric breath sounds after intubation. Evidence of esophageal intubation on auscultation of the stomach. Const: Vital Signs, click to edit/add: Vital Signs - 24 hr 04/23/23 23:00 04/23/23 23:00 04/23/23 23:00 Temperature 98.3 F Pulse Rate 97 Pulse Rate [Pulse Oximeter] 105 H Respiratory Rate 20 20 Blood Pressure [Le ft Arm] 114/76 Pulse Oximetry 87 L 87 L Oxygen Delivery Me thod Nasal Cannula Nasal Cannula Oxygen Flow Rate Fraction of Inspir ed Oxygen 04/24/23 03:45 04/24/23 07:00 04/24/23 07:00 Temperature 98.4 F Pulse Rate 104 H Pulse Rate [Pulse Oximeter] 97 Respiratory Rate 20 Blood Pressure [Le ft Arm] 131/85 Pulse Oximetry 91 90 Oxygen Delivery Me thod Nasal Cannula Nasal Cannula Oxygen Flow Rate 2 2 Fraction of Inspir ed Oxygen 04/24/23 07:00 04/24/23 07:00 04/24/23 11:00 Temperature 97.7 F 96.6 F L Pulse Rate Pulse Rate [Pulse Oximeter] 110 H 110 H 110 H Respiratory Rate 18 18 22 Blood Pressure [Le ft Arm] 125/88 102/60 Pulse Oximetry 90 90 Oxygen Delivery Me thod Nasal Cannula Nasal Cannula Oxygen Flow Rate 2 2 Fraction of Inspir ed Oxygen 04/24/23 11:40 04/24/23 12:20 04/24/23 13:00 Temperature Pulse Rate 86 Pulse Rate [Pulse Oximeter] 113 H 101 H Respiratory Rate 20 16 Blood Pressure [Le ft Arm] 108/74 125/73 Pulse Oximetry 90 91 Oxygen Delivery Me thod BiPAP BiPAP Oxygen Flow Rate Fraction of Inspir ed Oxygen 35 04/24/23 14:00 04/24/23 14:30 04/24/23 15:00 Temperature 97.5 F L Pulse Rate Pulse Rate [Pulse Oximeter] 69 79 Respiratory Rate 21 22 25 H Blood Pressure [Le ft Arm] 80/49 L 94/48 L Pulse Oximetry 93 93 93 Oxygen Delivery Me thod BiPAP BiPAP BiPAP Oxygen Flow Rate Fraction of Inspir ed Oxygen 28 28 04/24/23 15:00 04/24/23 15:00 04/24/23 16:00 Temperature 96.9 F L Pulse Rate 76 Pulse Rate [Pulse Oximeter] 71 69 Respiratory Rate 24 16 Blood Pressure [Le ft Arm] 82/48 L Pulse Oximetry 93 Oxygen Delivery Me thod BiPAP Oxygen Flow Rate Fraction of Inspir ed Oxygen 04/24/23 17:30 04/24/23 18:20 Temperature 96.5 F L Pulse Rate Pulse Rate [Pulse Oximeter] 71 63 Respiratory Rate 24 12 Blood Pressure [Le ft Arm] 95/54 L 101/72 Pulse Oximetry 92 90 Oxygen Delivery Me thod BiPAP BiPAP Oxygen Flow Rate Fraction of Inspir ed Oxygen 26 Documenting provider has reviewed patient's vital signs: yes Labs Labs: Laboratory Results - last 24 hr 04/24/23 04/24/23 04/24/23 06:05 11:50 13:00 WBC 9.20 RBC 3.49 L Hgb 11.3 L Hct 38.0 MCV 109 H MCH 32 MCHC 30 L RDW Coeff of Edmundo 16.0 H Plt Count 183 Neut % (Auto) 72.9 H Lymph % (Auto) 12.4 L [place] % (Auto) 5.8 Eos % (Auto) 1.1 Baso % (Auto) 0.3 Neut # (Auto) 6.70 Lymph # (Auto) 1.10 [place] # (Auto) 0.50 Eos # (Auto) 0.10 Baso # (Auto) 0.03 Abs Immat Gran (auto) 0.69 H Imm/Tot Granulo (auto) 7.5 VBG pH 7.187 L* 7.247 L* VBG pCO2 75 H* 69 H* VBG pO2 72.5 H 55.4 H VBG HCO3 28 30 H Sodium 138 Potassium 3.9 Chloride 108 Carbon Dioxide 29 Anion Gap 1 L BUN 12 Creatinine 0.2 L Estimated Creat Clear 253.07 Estimated GFR 138 Glucose 109 Calcium 9.0 Troponin I 0.05 H NT-Pro-B Natriuret Pep Lab Acknowledgement 04/24/23 04/24/23 16:38 16:47 WBC RBC Hgb Hct MCV MCH MCHC RDW Coeff of Edmundo Plt Count Neut % (Auto) Lymph % (Auto) [place] % (Auto) Eos % (Auto) Baso % (Auto) Neut # (Auto) Lymph # (Auto) [place] # (Auto) Eos # (Auto) Baso # (Auto) Abs Immat Gran (auto) Imm/Tot Granulo (auto) VBG pH 7.287 L VBG pCO2 70 H* VBG pO2 81.8 H VBG HCO3 33 H Sodium Potassium Chloride Carbon Dioxide Anion Gap BUN Creatinine Estimated Creat Clear Estimated GFR Glucose Calcium Troponin I NT-Pro-B Natriuret Pep 2910 Lab Acknowledgement Test Added
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
--- NOTE | 2023-04-24 20:16 | PC.NURSE ---
RN received accepted Pt @ 1845, Pt was being prepped for Intubation. Pt was Intubated and shipped to [place] via EMS by 1999.
--- NOTE | 2023-04-24 20:27 | PC.NURSE ---
Addendum entered by Robert Waterman RN 04/24/23 20:46: 1942: Norepi changed to 0.01 ug/kg/min Original Note: Intubation Meds: 1916: Norepi Started IV 4mg/250ml @ 0.02ug/Kg/min (3.75ml/hr) with NS @ 30ml/hr. 193: 100mg Propofol 193: 20mg Rocuronium 193: Ketamine 500mg/500ml @ 30ml per hr 193: Lidocaine 60 mg 193: Tube Placed 21cm at teeth (Zero Aspiration), ETCO2 46, SPO2 99 1946: Midazolam 2mg 2000: EMS transported Pt
[2023-04-24] MEDS: MIDAZOLAM HCL 1 MG/ML inj 2 MG IVP (20:28)
--- NOTE | 2023-04-24 20:48 | PC.NURSE ---
End of Shift: Patient uncomfortable in bed at start of shift. Up to chair with 2 assist and ceiling lift. States pain 6/10 but tolerable. O2 sats decrease to 78% on 1L NC. 2L to keep sats above 88%. Updated MD. RT in to see pt. Declined breakfast and taking in sips of fluids. No difficulty swallowing noted. Patient becoming more sleepy as the morning went on. Increased work of breathing and using abdominal muscles. Heart rate 100-115. Updated MD. EKG and repeat chest x-ray. Patient transferred back to bed and c/o difficulty breathing. MD in to see pt. Patient started on BiPAP on 1140 per RT settings. Patients blood pressure 80s-90s/50s-60s this afternoon. MD in to see pt. 500 mL bolus ordered and 250 mL given per MD. Burns patent. Patient continued to be less responsive this evening. Arousing occasionally to voice or sternal rub. Did wake up crying out in pain and able to take scheduled pain medication without difficulty. MD in to see patient and decision to intubate and transfer. Patient wanted to speak with sister Geeta, Dr. Jeronimo spoke with them and patient consented to procedure and transfer. Nurse to nurse report given to ELLIE Flower at [facility]. Wound vac dressings C/D/I. Wound vac network program manager sent with EMS.
== END 2023-04-24 19:55 | disposition short-term general hospital (02) | DRG 208 ==
LOC: ED 12:39 → MEDSURG 17:15
PROVIDERS: Family Medicine; Admitting Provider Family Medicine; Emergency Provider Family Medicine; PCP Family Medicine; Visit Provider Family Medicine
DX: J18.9 Pneumonia, unspecified organism (principal); G82.50 Quadriplegia, unspecified; L89.154 Pressure ulcer of sacral region, stage 4; J96.01 Acute respiratory failure with hypoxia; J96.02 Acute respiratory failure with hypercapnia; J98.11 Atelectasis; R78.81 Bacteremia; Z68.1 Body mass index [BMI] 19.9 or less, adult; N39.0 Urinary tract infection, site not specified; R79.89 Other specified abnormal findings of blood chemistry; I11.9 Hypertensive heart disease without heart failure; I27.20 Pulmonary hypertension, unspecified; I95.9 Hypotension, unspecified; N31.9 Neuromuscular dysfunction of bladder, unspecified; S14.109S Unspecified injury at unspecified level of cervical spinal cord, sequela; M62.838 Other muscle spasm; D53.9 Nutritional anemia, unspecified; F17.210 Nicotine dependence, cigarettes, uncomplicated; Z87.440 Personal history of urinary (tract) infections; B96.89 Other specified bacterial agents as the cause of diseases classified elsewhere
CPT/HCPCS: 31500; 36415; 71045; 71275; 80048; 80053; 81001; 82803; 83605; 83880; 84145; 84484; 85025; 85379; 86140; 87040; 87077; 87081; 87086; 87186; 87449; 87631; 87899; 93005; 94640; 94660; 94761; 99285; A9270; J0696; J1650; J1940; J2250; J2543; J2704; J3370; J3490; J7030; J7050; J7120; Q9967

== ENCOUNTER 2023-04-24 19:32 | Outpatient (CLI) | payer MEDICARE, SELFPAY | END 2023-04-24 19:33 | disposition home or self-care (01) | LOC: AMB 04-25 10:07 | PROVIDERS: PCP Family Medicine; Visit Provider Family Medicine | DX: J96.01 Acute respiratory failure with hypoxia (principal); J18.9 Pneumonia, unspecified organism | CPT/HCPCS: A0425; A0434 ==